=== PATIENT | female | born 1940 | race Caucasian/White ===

== ENCOUNTER 2019-03-02 06:31 | Inpatient (IN) ==
--- NOTE | 2019-03-02 06:52 | Emergency Department Note ---
ED Disposition Condition on Discharge: Good - Critical Care Critical Care Time: No <Rajiv Burch S - Last Filed: 03/02/19 07:52> Condition on Discharge: Serious Time of Disposition: 08:22 <Erick Bolden - Last Filed: 03/02/19 08:53> Clinical Impression: SOB (shortness of breath), Congestive heart failure, Fatigue, Coronary artery disease, Diabetes mellitus type 2 in obese, Hypercholesteremia, Hypoxia Disposition: Admitted as Observation Referrals: Beverly Escalante [Primary Care Provider] - Attestation: On 03/02/19, the high probability of a clinically significant, sudden or life threatening deterioration of the following system(s) required my full and direct attention, intervention and personal management. The time I documented below is in addition to time spent performing reported procedures but includes the cora wing listed in this critical care notation. Medical Decision Making - Medical Records Medical records reviewed: Yes: I reviewed the patient's medical records. - Alvarez Inquiry Pt receiving controlled substance: No - Lab Data Lab results reviewed: Yes: I reviewed the patient's lab results. Result diagrams: 03/02/19 07:15 - ECG Data Tracing #1 Normal Sinus Rhythm: Yes Ischemic changes: non-specific ST-T wave changes <Rajiv Burch S - Last Filed: 03/02/19 07:52> - Lab Data Result diagrams: 03/02/19 07:15 03/02/19 07:15 <Erick Bolden - Last Filed: 03/02/19 08:53> Vital Signs: 03/02/19 06:32 Temperature 98.1 F Temperature Source Oral Pulse Rate [Right] 64 Respiratory Rate 20 Blood Pressure [Left Arm] 201/87 H Blood Pressure Mean [Left Arm] 125 Blood Pressure Source [Left Arm] Automatic Cuff Blood Pressure Position [Left Arm] Sitting 02 Sat by Pulse Oximetry 93 L Oxygen Delivery Method Room Air - Lab Data Lab Results 03/02/19 06:43: Specimen Source Right radial, O2 % 2, ABG pH 7.39, ABG pCO2 39.1, ABG pO2 81.6, ABG HCO3 23.1, ABG Total CO2 24.3, ABG O2 Saturation 96, ABG Base Excess -1.8, Hang Test acceptable 03/02/19 07:15: WBC 12.6 H, RBC 4.45, Hgb 13.2, Hct 42.6, MCV 95.9, MCH 29.8, MCHC 31.0 L, RDW 15.3, Plt Count 300, MPV 8.7, Neut % (Auto) 73.7, Lymph % (Auto) 21.1, [place] % (Auto) 3.5, Eos % (Auto) 1.2, Baso % (Auto) 0.4, Neut # (Auto) 9.3 H, Lymph # (Auto) 2.7, [place] # (Auto) 0.5, Eos # (Auto) 0.2, Baso # (Auto) 0.1, ESR 26 03/02/19 07:15: Sodium 141, Potassium 4.1, Chloride 102, Carbon Dioxide 28, Anion Gap 15.1 H, BUN 18, Creatinine 0.97, Estimated Creat Clear 62, Estimated GFR 55 L, Est GFR ( Amer) 67, Glucose 205 H, Calcium 8.8, Total Bilirubin 0.7, AST 26, ALT 32, Alkaline Phosphatase 54, Troponin I < 0.02, C-Reactive Protein < 0.2, Total Protein 7.4, Albumin 3.5, Globulin 3.9 H, Albumin/Globulin Ratio 0.9 L 03/02/19 07:30: Lactate 1.5 Orders (Tests/Meds): ED MEDICATIONS Discontinued Medications Generic Name Dose Route Start Last Admin Trade Name Freq PRN Reason Stop Dose Admin Albuterol/Ipratropium 3 ml 03/02/19 06:43 Duoneb 3ml Neb IH 03/02/19 06:44 ONCE ONE Aspirin 324 mg 03/02/19 08:10 Aspirin 81mg Chewable Tablet PO 03/02/19 08:11 ONCE ONE Sodium Chloride 1,000 mls @ 999 mls/hr 03/02/19 06:45 03/02/19 06:52 Sod Chlor 0.9% 1000ml Bag IV 03/02/19 07:45 999 mls/hr .Q1H1M REMA Administration Methylprednisolone Sodium Succinate 125 mg 03/02/19 06:43 03/02/19 06:52 Solu-Medrol 125mg/2ml Vial IV 03/02/19 06:44 125 mg ONCE ONE Administration ORDERS Category Date Time Status BNP [B-Type Natriuretic Peptide] Stat Lab 03/02/19 07:15 Received Troponin I Q3H Lab 03/02/19 10:00 Ordered Troponin I Q3H Lab 03/02/19 13:00 Ordered Blood Culture Stat Micro 03/02/19 07:30 Received Resp/SOB HPI - General Mode of Arrival: EMS Source of Information: Patient, EMS, Medical Record Limitations: No Limitations Description of Symptoms (Recalled from ER Triage Doc. by RN): Pt states she became SOA today - History of Present Illness MD Complaint: shortness of breath Onset (ago): day(s) Severity: moderate Associated symptoms: denies other symptoms Treatment prior to arrival: none - Related Data Home oxygen amount: none <Rajiv Burch - Last Filed: 03/02/19 07:52> <Erick Bolden - Last Filed: 03/02/19 08:53> - General Chief Complaint: Shortness of Breath/Dyspnea Stated Complaint: SOA Time Seen by Provider: 03/02/19 06:40 - History of Present Illness pt with no chest pain but sob since yesterday with no prod cough - hx of mi in 08/22 with no stents - (Rajiv Burch) - Related Data Home Medications Medication Instructions Recorded Confirmed Levothyroxine Sodium [Synthroid 50 mcg PO DAILY 03/02/19 03/02/19 50mcg (0.05mg) tab] Lisinopril [Lisinopril 20mg Tab] 20 mg PO DAILY 03/02/19 03/02/19 Metformin HCl 500 mg PO BID 03/02/19 03/02/19 Metoprolol Tartrate [Lopressor 50 mg PO BID 03/02/19 03/02/19 50mg tablet] Allergies Allergy/AdvReac Type Severity Reaction Status Date / Time cephalexin [From Keflex] Allergy Verified 03/02/19 06:42 nitrofurantoin Allergy Verified 03/02/19 06:42 [From Macrodantin] Sulfa (Sulfonamide Allergy Verified 03/02/19 06:42 Antibiotics) [facility] History - Hepatitis A Screen Drug use history?: No High risk sexual behaviors?: No History of sexually transmitted infection?: No Currently employed?: No Childcare worker?: No Do you have indoor plumbing?: Yes Do you have electricity?: Yes I have reviewed the patient's past medical history: Yes Medical History: Reports:: Diabetes Mellitus Type 2 Denies:: Internal Pacemaker Laterality Cases: Left: Arthroscopy Shoulder, Total Knee Replacement Other Surgeries: No: Pacemaker Amputation: No - Social History Smoking Status: Former smoker Alcohol Intake: never Occupational Status: retired <Rajiv Burch - Last Filed: 03/02/19 07:52> - Hepatitis A Screen Attestation statement:: This patient has been screened for Hepatitis A risk factors. ROS Obtained: Yes All systems reviewed & no additional complaints - Constitutional Constitutional: Denies fever(s) - Eyes Eyes: Denies change in vision - ENT Ears, Nose, Mouth, and Throat: Denies sore throat - Cardiovascular Cardiovascular: Denies chest pain, Reports dyspnea - Respiratory Respiratory: Yes cough - Gastrointestinal Gastrointestingal: Denies: diarrhea - Genitourinary Female Genitourinary: Denies hematuria - Musculoskeletal Musculoskeletal: Denies joint pain, Denies joint swelling - Integumentary/Breasts Skin/Breast: Denies rash - Neurologic Neurologic: Denies seizure-like activity <Rajiv Burch - Last Filed: 03/02/19 07:52> Physical Exam - General General appearance: alert, obese - Head Head exam: normocephalic - Eye Eye exam: Present: PERRL, EOMI. Absent: scleral icterus - ENT ENT exam: Present: mucous membranes dry - Neck Neck exam: Present: trachea midline - Respiratory Respiratory exam: Absent: respiratory distress - Cardiovascular Cardiovascular exam: Present: regular rate - Abdominal Exam Abdominal exam: Present: soft - Extremities Exam Extremities exam: Present: pedal edema - Neurological Exam Neurological exam: Present: alert, CN II-XII intact - Psychiatric Psychiatric exam: Present: normal affect - Skin Skin exam: Absent: rash <Rajiv Burch - Last Filed: 03/02/19 07:52>
[2019-03-02 07:17] LABS: ABG Base Excess -1.8 mmol/L (-2.4-2.3); ABG HCO3 23.1 mmhg (22.0-26.0); ABG Oxygen Saturation 96 % (90-100); ABG PCO2 39.1 mmhg (35.0-45.0); ABG PH 7.39 mmol/L (7.35-7.45); ABG PO2 81.6 mmhg (80-100); ABG TCO2 24.3 mmhg (23-27)
[2019-03-02 07:24] LABS: Allen's Test acceptable; Oxygen 2 %
[2019-03-02 07:48] LABS: Basophils # 0.1 K/mm3 (0-0.2); Basophils % 0.4 % (0.1-2.0); Eosinophils # 0.2 K/mm3 (0.0-0.4); Eosinophils % 1.2 % (0.1-12.0); Hematocrit 42.6 % (37.0-47.0); Hemoglobin 13.2 g/dL (12.2-16.2); Lymphocytes # 2.7 K/mm3 (0.7-4.5); Lymphocytes % 21.1 % (10-50); Mean Corpuscular Volume 95.9 fl (81-99); Mean Platelet Volume 8.7 fl (7.4-10.4); Monocytes # 0.5 K/mm3 (0.1-1.0); Monocytes % 3.5 % (1.7-9.3); Neutrophils # 9.3 K/mm3 (1.8-7.8); Neutrophils % 73.7 % (37.0-80.0); Platelet Count 300 K/mm3 (142-424); Red Blood Count 4.45 M/mm3 (4.20-5.40); Red Cell Distribution Width 15.3 % (11.5-17.5); White Blood Count 12.6 K/mm3 (4.8-10.8)
[2019-03-02 07:55] LABS: Alanine Aminotransferase 32 U/L (12-78); Albumin Level 3.5 gm/dL (3.4-5.0); Albumin/Globulin Ratio 0.9 (1.1-1.8); Alkaline Phosphatase 54 U/L (46-116); Anion Gap 15.1 mEq/L (5-15); Aspartate Amino Transferase 26 U/L (15-37); Bilirubin,Total 0.7 mg/dL (0.2-1.0); Blood Urea Nitrogen 18 mg/dL (7-18); Calcium 8.8 mg/dL (8.5-10.1); Carbon Dioxide 28 mmol/L (21.0-32.0); Chloride 102 mmol/L (98-107); Globulin 3.9 gm/dl (1.3-3.2); Glucose 205 mg/dL (74-106); Sodium 141 mmol/L (136-145); Total Protein,Serum 7.4 gm/dL (6.4-8.2)
[2019-03-02 08:00] LABS: C-Reactive Protein < 0.2 mg/dL (0.0-0.9)
[2019-03-02 08:26] LABS: Erythrocyte Sedimentation Rate 26 mm/hr (0-30)
--- NOTE | 2019-03-02 13:12 | History & Physical Report ---
*Admission Date: 03/02/19 *Chief complaint: shortness of breath *History of present illness: Ms. Shukla is an 79-year-old female who is a patient of [facility] in [place]. She has a history of diabetes, hypothyroidism, hyperlipidemia, hypertension, and she had an NV in August [address] and is followed [address] Dr[address] Taveras. She states she has been fatigued for the past few weeks and then began having shortness of breath yesterday. She states she had a cough but it was not productive. The shortness of breath progressively worsened. She states she woke up at 2 AM and was having difficulty breathing. She did come by the ambulance to the emergency room this morning for evaluation. She was felt to have CHF in the emergency room and was given Lasix and admitted. She denies any chest pain or lower extremity edema. She states she has urinated a few times since she was given the Lasix and her shortness of breath does seem to be improving. [facility] History I have reviewed the patient's past medical history: Yes Medical History: Reports:: Diabetes Mellitus Type 2, Hyperlipidemia, Hypertension, Myocardial Infarction Denies:: Cancer, Internal Pacemaker *Have you ever received a pneumonia vaccine?: Yes *Have you received a flu vaccine this season?: Yes Other Medical History: Reports: Hypothyroidism Laterality Cases: Left: Arthroscopy Shoulder, Total Knee Replacement Other Surgeries: Yes: Hysterectomy-Total. No: Pacemaker Amputation: No - *Social History Educational Level: Attended High School Smoking Status: Former smoker Alcohol Intake: never *Occupational Status:: retired Housing: apartment *Travel in the last 8 weeks: None Family Hx:: Diabetes, Heart Attack, Hypertension Review of Systems - Constitutional Reports fatigue, Reports weakness, Denies chills, Denies fever(s) - Eyes Denies blurry vision, Denies double vision - ENT Reports dizziness, Denies nasal congestion, Denies sore throat - *Cardiovascular Reports shortness of breath, Denies chest pain, Denies leg swelling, Denies rapid, pounding, or irregular heartbeat - *Respiratory Reports cough, Reports shortness of breath, Denies wheezing - *Gastrointestinal Denies abdominal pain, Denies loose stools, Denies nausea, Denies vomiting - *Genitourinary Denies difficulty urinating, Denies painful urination - *Musculoskeletal Denies joint pain, Denies body aches - *Neurologic Reports dizziness, Reports weakness, Denies headache(s), Denies seizure-like activity Meds Home Medications Medication Instructions Recorded Confirmed Type Insulin Glargine,Hum.rec.anlog 40 unit SQ HS 03/02/19 03/02/19 History [Lantus Insulin 100units/mL 10mL vial] Levothyroxine Sodium [Synthroid 50 mcg PO DAILY 03/02/19 03/02/19 History 50mcg (0.05mg) tab] Lisinopril [Lisinopril 20mg Tab] 20 mg PO DAILY 03/02/19 03/02/19 History Metformin HCl 500 mg PO BID 03/02/19 03/02/19 History Metoprolol Tartrate [Lopressor 0.5 tab PO BID 03/02/19 03/02/19 History 50mg tablet] Allergies Allergy/AdvReac Type Severity Reaction Status Date / Time cephalexin [From Keflex] Allergy Verified 03/02/19 06:42 nitrofurantoin Allergy Verified 03/02/19 06:42 [From Macrodantin] Sulfa (Sulfonamide Allergy Verified 03/02/19 06:42 Antibiotics) Exam Vital signs and Labs for Last 24 Hours: Temp Pulse Resp BP Pulse Ox 97.9 F 95 H 18 110/46 L 96 03/02/19 11:08 03/02/19 11:08 03/02/19 11:08 03/02/19 11:08 03/02/19 11:08 Laboratory Results - last 24 hr 03/02/19 06:43: Specimen Source Right radial, O2 % 2, ABG pH 7.39, ABG pCO2 39.1, ABG pO2 81.6, ABG HCO3 23.1, ABG Total CO2 24.3, ABG O2 Saturation 96, ABG Base Excess -1.8, Hang Test acceptable 03/02/19 07:15: WBC 12.6 H, RBC 4.45, Hgb 13.2, Hct 42.6, MCV 95.9, MCH 29.8, MCHC 31.0 L, RDW 15.3, Plt Count 300, MPV 8.7, Neut % (Auto) 73.7, Lymph % (Auto) 21.1, [place] % (Auto) 3.5, Eos % (Auto) 1.2, Baso % (Auto) 0.4, Neut # (Auto) 9.3 H, Lymph # (Auto) 2.7, [place] # (Auto) 0.5, Eos # (Auto) 0.2, Baso # (Auto) 0.1, ESR 26 03/02/19 07:15: Sodium 141, Potassium 4.1, Chloride 102, Carbon Dioxide 28, Anion Gap 15.1 H, BUN 18, Creatinine 0.97, Estimated Creat Clear 62, Estimated GFR 55 L, Est GFR ( Amer) 67, Glucose 205 H, Calcium 8.8, Total Bilirubin 0.7, AST 26, ALT 32, Alkaline Phosphatase 54, Troponin I < 0.02, C-Reactive Protein < 0.2, Total Protein 7.4, Albumin 3.5, Globulin 3.9 H, Albumin/Globulin Ratio 0.9 L 03/02/19 07:15: B-Natriuretic Peptide 297 H 03/02/19 07:30: Lactate 1.5 03/02/19 10:00: Troponin I < 0.02 03/02/19 12:42: POC Glucose 320 H* I & O for Last 24 hours: Intake & Output 02/28/19 03/01/19 03/02/19 03/03/19 11:59 11:59 11:59 11:59 Intake Total 1000 / 1000 Balance 1000 / 1000 Weight 190 lb 8 oz 190 lb 7.988 oz - *Routine HEENT Exam Head: Present: normocephalic Eye: Present: EOMI, PERRL ENT: Present: mucous membranes moist - *Routine Neck Exam Present: supple. Absent: lymphadenopathy - *Routine Respiratory Exam Present: crackles (faint bibasilar). Absent: wheezes - *Routine Cardiovascular Exam Present: RRR - *Routine Abdominal Exam Present: soft, normoactive bowel sounds. Absent: tenderness - *Routine Extremities Exam Absent: cyanosis, clubbing, edema - *Routine Skin Exam Present: warm. Absent: rash - *Routine Neurological Exam Present: alert, oriented X3 H&P: Result - Impressions CXR - CHF with possible infiltrate or atelectasis in the right lower lobe Assessment and Plan (1) Congestive heart failure Current visit: Yes Status: Acute Category: Medical Code(s): I50.9 - Heart failure, unspecified (2) Hypoxia Current visit: Yes Status: Acute Category: Medical Code(s): R09.02 - Hypoxemia (3) SOB (shortness of breath) Current visit: Yes Status: Acute Category: Medical Code(s): R06.02 - Shortness of breath (4) Fatigue Current visit: Yes Status: Acute Category: Medical Code(s): R53.83 - Other fatigue (5) Coronary artery disease Current visit: Yes Status: Chronic Category: Medical Code(s): I25.10 - Atherosclerotic heart disease of [place] coronary artery without angina pectoris (6) Diabetes mellitus type 2 in obese Current visit: Yes Status: Chronic Category: Medical Code(s): E11.69 - Type 2 diabetes mellitus with other specified complication; E66.9 - Obesity, unspecified (7) Hypercholesteremia Current visit: Yes Status: Chronic Category: Medical Code(s): E78.00 - Pure hypercholesterolemia, unspecified - Assessment and plan all Dx Assessment and Plan for all problems:: Pt was admitted and started on IV lasix. She is already feeling better. She was also given a dose of levaquin in the ER d/t elevated WBC. CXR questioned a possible pneumonia. May need continued antibiotics. Will discuss with Dr. Wooten. Will get a repeat CXR tomorrow and will also order an Echo.
--- NOTE | 2019-03-02 13:54 | Pharmacy Consult Notes ---
[facility] Pharmacy VTE Monitoring - Patient Demographics Admission date: 03/02/19 Report Date: 03/02/19 Time: 13:52 Allergies/Adverse Reactions: Patient Allergies cephalexin [From Keflex] Allergy (Verified 03/02/19 06:42) nitrofurantoin [From Macrodantin] Allergy (Verified 03/02/19 06:42) Sulfa (Sulfonamide Antibiotics) Allergy (Verified 03/02/19 06:42) Height: 1.52 m Weight: 86.409 kg Patient Problems: Current Active Problems SOB (shortness of breath) (Acute) Congestive heart failure (Acute) Fatigue (Acute) Coronary artery disease (Chronic) Diabetes mellitus type 2 in obese (Chronic) Hypercholesteremia (Chronic) Hypoxia (Acute) - VTE Risk Labs: VTE Related Lab Results Hgb 13.2 g/dL (12.2-16.2) 03/02/19 07:15 Hct 42.6 % (37.0-47.0) 03/02/19 07:15 Plt Count 300 K/mm3 (142-424) 03/02/19 07:15 BUN 18 mg/dL (7-18) 03/02/19 07:15 Creatinine 0.97 mg/dL (0.55-1.02) 03/02/19 07:15 Estimated Creat Clear 62 mL/min (50-200) 03/02/19 07:15 Was VTE Risk Assessment Performed: Yes VTE Score: 8 VTE Risk Level: Moderate Risk - Prophylaxis VTE Prophylaxis Ordered?: Yes Types of VTE Prophylaxis: TEDS Knee High Location of Applied Device: Bilateral Lower Extremeties
--- NOTE | 2019-03-02 15:00 | Electrocardiograph Report ---
APPROVED REPORT Exam: Resting ECG HR:56 bpm ECG Measurements Heart Rate 56 AXES QRSd 84 QRS 19 QT 508 T154 QTc 490 <Conclusion> NSR-Motion Artifact Prolonged QT Consider Inferolateral Ischemia Abnormal ECG Electronically signed by : Behzad Portillo, 03/02/2019 14:59:42
--- NOTE | 2019-03-02 18:29 | Progress Note ---
Internal Medicine - PN: Subj *Date: 03/02/19 *Time: 18:27 Interval history: The patient is quite comfortable this evening. Her lungs are remarkably clear. Her troponins have been negative. Echocardiogram was obtained and report is pending. Exam Vital signs and Labs for Last 24 Hours: Temp Pulse Resp BP Pulse Ox 97.5 F L 58 L 20 159/69 H 96 03/02/19 16:00 03/02/19 16:00 03/02/19 16:00 03/02/19 16:00 03/02/19 16:00 Laboratory Results - last 24 hr 03/02/19 06:43: Specimen Source Right radial, O2 % 2, ABG pH 7.39, ABG pCO2 39.1, ABG pO2 81.6, ABG HCO3 23.1, ABG Total CO2 24.3, ABG O2 Saturation 96, ABG Base Excess -1.8, Hang Test acceptable 03/02/19 07:15: WBC 12.6 H, RBC 4.45, Hgb 13.2, Hct 42.6, MCV 95.9, MCH 29.8, MCHC 31.0 L, RDW 15.3, Plt Count 300, MPV 8.7, Neut % (Auto) 73.7, Lymph % (Auto) 21.1, [place] % (Auto) 3.5, Eos % (Auto) 1.2, Baso % (Auto) 0.4, Neut # (Auto) 9.3 H, Lymph # (Auto) 2.7, [place] # (Auto) 0.5, Eos # (Auto) 0.2, Baso # (Auto) 0.1, ESR 26 03/02/19 07:15: Sodium 141, Potassium 4.1, Chloride 102, Carbon Dioxide 28, Anion Gap 15.1 H, BUN 18, Creatinine 0.97, Estimated Creat Clear 62, Estimated GFR 55 L, Est GFR ( Amer) 67, Glucose 205 H, Calcium 8.8, Total Bilirubin 0.7, AST 26, ALT 32, Alkaline Phosphatase 54, Troponin I < 0.02, C-Reactive Protein < 0.2, Total Protein 7.4, Albumin 3.5, Globulin 3.9 H, Albumin/Globulin Ratio 0.9 L 03/02/19 07:15: B-Natriuretic Peptide 297 H 03/02/19 07:30: Lactate 1.5 03/02/19 10:00: Troponin I < 0.02 03/02/19 12:42: POC Glucose 320 H* 03/02/19 13:00: Troponin I < 0.02 03/02/19 16:31: POC Glucose 226 H I & O for Last 24 hours: Intake & Output 02/28/19 03/01/19 03/02/19 03/03/19 11:59 11:59 11:59 11:59 Intake Total 1000 / 1000 240 / 240 Balance 1000 / 1000 240 / 240 Weight 190 lb 8 oz 190 lb 7.988 oz - Constitutional no acute distress - *Routine Respiratory Exam Present: CTA bilaterally - *Routine Cardiovascular Exam Present: RRR - *Routine Extremities Exam Present: edema (1+) Assessment and Plan (1) Congestive heart failure Current visit: Yes Status: Acute Category: Medical Code(s): I50.9 - Heart failure, unspecified (2) Hypoxia Current visit: Yes Status: Acute Category: Medical Code(s): R09.02 - Hypoxemia (3) SOB (shortness of breath) Current visit: Yes Status: Acute Category: Medical Code(s): R06.02 - Shortness of breath (4) Fatigue Current visit: Yes Status: Acute Category: Medical Code(s): R53.83 - Other fatigue (5) Coronary artery disease Current visit: Yes Status: Chronic Category: Medical Code(s): I25.10 - Atherosclerotic heart disease of [place] coronary artery without angina pectoris (6) Diabetes mellitus type 2 in obese Current visit: Yes Status: Chronic Category: Medical Code(s): E11.69 - Type 2 diabetes mellitus with other specified complication; E66.9 - Obesity, unspecified (7) Hypercholesteremia Current visit: Yes Status: Chronic Category: Medical Code(s): E78.00 - Pure hypercholesterolemia, unspecified - Assessment and plan all Dx Assessment and Plan for all problems:: Continue present treatment.
[2019-03-03 06:36] LABS: Albumin Level 3.1 gm/dL (3.4-5.0); Albumin/Globulin Ratio 0.8 (1.1-1.8); Anion Gap 15.3 mEq/L (5-15); Bilirubin,Total 0.5 mg/dL (0.2-1.0); Calcium 8.6 mg/dL (8.5-10.1); Globulin 3.8 gm/dl (1.3-3.2); Phosphorous 4.7 mg/dL (2.4-4.9); Total Protein,Serum 6.9 gm/dL (6.4-8.2)
[2019-03-03 06:57] LABS: Basophils % 0.1 % (0.1-2.0); Eosinophils % 0.1 % (0.1-12.0); Hemoglobin 12.7 g/dL (12.2-16.2); Lymphocytes % 11.1 % (10-50); Mean Corpuscular HGB Conc 30.3 g/dL (31.8-35.4); Mean Platelet Volume 8.8 fl (7.4-10.4); Monocytes % 6.1 % (1.7-9.3); Neutrophils % 82.6 % (37.0-80.0); Platelet Count 307 K/mm3 (142-424); Red Blood Count 4.38 M/mm3 (4.20-5.40); Red Cell Distribution Width 15.4 % (11.5-17.5); White Blood Count 17.3 K/mm3 (4.8-10.8)
[2019-03-03 06:58] LABS: Lymphocytes # 1.9 K/mm3 (0.7-4.5); Monocytes # 1.1 K/mm3 (0.1-1.0); Neutrophils # 14.3 K/mm3 (1.8-7.8)
[2019-03-03 07:32] LABS: Lymphocytes % 14 % (10-50); Monocytes % 9 % (2-9); Neutrophils % 75 % (42-76); Total Cells Counted 100
[2019-03-03 07:33] LABS: RBC Morphology Normal
--- NOTE | 2019-03-03 10:44 | Cardiology Report ---
APPROVED REPORT EXAM: Comprehensive 2D, Doppler, and color-flow Echocardiogram Cardiology Consultants: Carey James RT(R) Ht: 4 ft 11 in Wt: 190lbs BSA: 1.80 BP: 110/46 mmHg Indications: ex smoker, fatigue, HTN, diabetes, SOB, Hyperlipidemia 2D Dimensions Aortic Root 2.30 cm F: 2.7 - 3.3 Left Atrium 4.10 cm F: 2.7 - 3.8 LVOT 1.64 cm (M/F) 1.5-2.5 M-Mode Dimensions RVDd 1.74 cm (0.9-2.6)LVDd 4.92 cm (3.5-5.7) LVDs 3.55 cm (3.5-5.7)IVSd 1.09 cm (0.6-1.1) PWd 1.09 cm (0.6-1.1)EF (Teich) 53.80% FS 27.80% EDV (Teich) 113.90 mL ESV (Teich) 52.60 mL LV Diastology E/A Ratio 2.08 Mitral Valve MV A Velocity 45.00 (40-130 cm/s) Left Ventricle Left atrium is moderately enlarged, left ventricle is normal size, mild concentric left ventricular hypertrophy, visually estimated ejection fraction 55% with no regional wall motion abnormality, grade 1 diastolic dysfunction seen with tissue Doppler evidence of raise left atrial pressure. Right Ventricle Right atrium and right ventricular mildly enlarged with normal contractility. Aortic Valve Aortic valve is thickened and calcified leaflet continue to display good mobility, there is no aortic stenosis, there is mild aortic insufficiency. Mitral Valve Mitral valve is grossly normal, there is no mitral stenosis, there is mild mitral regurgitation. Tricuspid Valve Tricuspid valve is grossly normal, there is mild tricuspid regurgitation, tricuspid regurgitation jet velocity is inadequate for calculation of the right ventricular systolic pressure. Pulmonic Valve Pulmonic valve is poorly visualized. Great Vessels Aortic root is normal size. Pericardium No significant pericardial effusion noted. Conclusion 1. Moderately enlarged left atrium, normal left ventricular size, mild concentric left ventricular hypertrophy, visually estimated ejection fraction 55% with no regional wall motion abnormality, grade 1 diastolic dysfunction seen with tissue Doppler evidence of raise left atrial pressure. 2. Mildly enlarged right ventricle with normal contractility. 3. Thickened and calcified aortic valve without aortic stenosis, there is mild aortic insufficiency. 4. Mild mitral and tricuspid regurgitation. 5. No significant pericardial effusion noted. Electronically signed by : Anand Grant, 03/03/2019 10:44:16
--- NOTE | 2019-03-03 11:20 | Progress Note ---
Internal Medicine - PN: Subj *Date: 03/03/19 *Time: 11:17 Interval history: Clinically she is stable. She slept well. She is not short of breath. She was not seen by cardiology. She did not receive her Lantus dose. I will give her a partial dose this morning. I discussed her meds with her today. Furosemide 40 mg will be added to her regimen. She is to continue her other medications as prior to hospitalization. She was encouraged to contact her primary care provider as soon as possible. She needs follow-up within the week. Exam Vital signs and Labs for Last 24 Hours: Temp Pulse Resp BP Pulse Ox 97.8 F 57 L 17 148/85 H 94 L 03/03/19 07:30 03/03/19 07:30 03/03/19 07:30 03/03/19 07:30 03/03/19 07:30 Laboratory Results - last 24 hr 03/02/19 07:15: Hemoglobin A1c 8.3 H 03/02/19 12:42: POC Glucose 320 H* 03/02/19 13:00: Troponin I < 0.02 03/02/19 16:31: POC Glucose 226 H 03/02/19 20:03: POC Glucose 303 H* 03/03/19 05:46: WBC 17.3 H D, RBC 4.38, Hgb 12.7, Hct 42.0, MCV 96.0, MCH 29.1, MCHC 30.3 L, RDW 15.4, Plt Count 307, MPV 8.8, Neut % (Auto) 82.6 H, Lymph % (Auto) 11.1, [place] % (Auto) 6.1, Eos % (Auto) 0.1, Baso % (Auto) 0.1, Neut # (Auto) 14.3 H, Lymph # (Auto) 1.9, [place] # (Auto) 1.1 H, Eos # (Auto) 0.0, Baso # (Auto) 0.0, Total Counted 100, Neutrophils % (Manual) 75, Band Neutrophils % 2.0, Lymphocytes % (Manual) 14, Monocytes % (Manual) 9, Platelet Estimate Normal, RBC Morphology Normal 03/03/19 05:46: Sodium 139, Potassium 4.3, Chloride 101, Carbon Dioxide 27, Anion Gap 15.3 H, BUN 32 H D, Creatinine 1.33 H D, Estimated Creat Clear 47, Estimated GFR 38 L, Est GFR ( Amer) 46 L D, Glucose 268 H D, Calcium 8.6, Phosphorus 4.7, Magnesium 1.7, Total Bilirubin 0.5, AST 18 D, ALT 26, Alkaline Phosphatase 48, Total Protein 6.9, Albumin 3.1 L D, Globulin 3.8 H, Albumin/Globulin Ratio 0.8 L, Triglycerides 68, Cholesterol 165, LDL Cholesterol 68, VLDL Cholesterol 14, HDL Cholesterol 83, Cholesterol/HDL Ratio 2.0 I & O for Last 24 hours: Intake & Output 02/28/19 03/01/19 03/02/19 03/03/19 11:59 11:59 11:59 11:59 Intake Total 1000 / 1000 1080 / 1080 Output Total 600 / 600 Balance 1000 / 1000 480 / 480 Weight 190 lb 8 oz 194 lb 8 oz - Constitutional no acute distress - *Routine HEENT Exam Head: Present: normocephalic Eye: Present: EOMI, PERRL, normal accommodation ENT: Present: mucous membranes moist - Routine Chest/Breast/Axilla Exam Chest wall: Absent: tenderness - *Routine Respiratory Exam Present: CTA bilaterally - *Routine Cardiovascular Exam Present: RRR - *Routine Abdominal Exam Present: soft. Absent: tenderness - *Routine Extremities Exam Absent: edema - *Routine Neurological Exam Present: alert, oriented X3 Assessment and Plan (1) Congestive heart failure Current visit: Yes Status: Acute Category: Medical Code(s): I50.9 - Heart failure, unspecified (2) Hypoxia Current visit: Yes Status: Acute Category: Medical Code(s): R09.02 - Hypoxemia (3) SOB (shortness of breath) Current visit: Yes Status: Acute Category: Medical Code(s): R06.02 - Shortness of breath (4) Fatigue Current visit: Yes Status: Acute Category: Medical Code(s): R53.83 - Other fatigue (5) Coronary artery disease Current visit: Yes Status: Chronic Category: Medical Code(s): I25.10 - Atherosclerotic heart disease of [place] coronary artery without angina pectoris (6) Diabetes mellitus type 2 in obese Current visit: Yes Status: Chronic Category: Medical Code(s): E11.69 - Type 2 diabetes mellitus with other specified complication; E66.9 - Obesity, unspecified (7) Hypercholesteremia Current visit: Yes Status: Chronic Category: Medical Code(s): E78.00 - Pure hypercholesterolemia, unspecified - Assessment and plan all Dx Assessment and Plan for all problems:: Discharged on home medications. Lasix 40 mg a day added. Follow-up with primary care provider within the week is recommended.
[2019-03-03 12:34] LABS: Microscopic, Urine URINE MICROSCOPIC (MICROSCOPIC)
[2019-03-03 12:56] LABS: Appearance,Urine CLEAR (Clear); Bilirubin,Urine Negative (Negative); Blood, Urine Negative (Negative); Color,Urine YELLOW (Yellow); Glucose,Urine (UA) Negative (Negative); Ketones,Urine Negative (Negative); Leukocyte Esterase,Urine Negative (Negative); PH,Urine 5.5 (5.0-8.5); Protein,Urine Negative (Negative); Urobilinogen,Urine 0.2 EU/dl (0.2)
[2019-03-03 12:59] LABS: RBC,Urine Occasional #/hpf (0-3); Squamous Epithelial Cell,Urine Occasional #/hpf (0-5); WBC,Urine Occasional #/hpf (0-3)
--- NOTE | 2019-03-05 21:36 | Discharge Summary ---
General - General Admission date:: 03/02/19 Discharge date: 03/03/19 HPI HPI: Ms. Shukla is an 79-year-old female who is a patient of [facility] in [place]. She has a history of diabetes, hypothyroidism, hyperlipidemia, hypertension, and she had an [place] in August 2018 and is followed by Dr[address] Taveras. She states she has been fatigued for the past few weeks and then began having shortness of breath yesterday. She states she had a cough but it was not productive. The shortness of breath progressively worsened. She states she woke up at 2 AM and was having difficulty breathing. She did come by the ambulance to the emergency room this morning for evaluation. She was felt to have CHF in the emergency room and was given Lasix and admitted. She denies any chest pain or lower extremity edema. She states she has urinated a few times since she was given the Lasix and her shortness of breath does seem to be improving. Hospital Course Hospital Course: The patient's initial chest x-ray showed CHF with a possible infiltrate in the right lower lobe. She was admitted and started on Lasix. She was already feeling better after a dose of Lasix at the time of history and physical. She was given a dose of Levaquin in the emergency room due to a possible pneumonia on chest x-ray. She had an echo done showing an EF of 55%. There was grade 1 diastolic dysfunction. Patient's troponins all returned negative. Her shortness of breath greatly improved with Lasix and diuresis. She had a repeat chest x-ray showing improvement in the congestive heart failure with a trace right sided effusion and no pneumonia. Clinically, she was stable to be discharged home. Lasix 40 mg was added to her daily medication regimen. She was encouraged to contact her primary care provider for follow-up as soon as pos sible. The patient's white blood cell count was elevated, but it was felt to be due to the steroids she received in the emergency room. Dr. Wooten felt she would need a follow-up CBC at her PCPs office. Objective Vital signs: Temp Pulse Resp BP Pulse Ox 97.8 F 57 L 17 148/85 H 94 L 03/03/19 07:30 03/03/19 07:30 03/03/19 07:30 03/03/19 07:30 03/03/19 07:30 Narrative: - *Routine HEENT Exam Head: Present: normocephalic Eye: Present: EOMI, PERRL ENT: Present: mucous membranes moist - *Routine Neck Exam Present: supple. Absent: lymphadenopathy - *Routine Respiratory Exam Present: crackles (faint bibasilar). Absent: wheezes - *Routine Cardiovascular Exam Present: RRR - *Routine Abdominal Exam Present: soft, normoactive bowel sounds. Absent: tenderness - *Routine Extremities Exam Absent: cyanosis, clubbing, edema - *Routine Skin Exam Present: warm. Absent: rash - *Routine Neurological Exam Present: alert, oriented X3 Results Labs on day of discharge: Preliminary micro results at discharge 03/03/19 09:17 Sputum Culture - Preliminary Sputum - Expectorated Sputum 03/02/19 07:30 Blood Culture - Preliminary Blood NO GROWTH AFTER 48 HOURS 03/02/19 07:15 Blood Culture - Preliminary Blood NO GROWTH AFTER 48 HOURS DS: Diagnosis - Discharge Diagnosis (1) Congestive heart failure Status: Acute (2) Hypoxia Status: Acute (3) SOB (shortness of breath) Status: Acute (4) Fatigue Status: Acute (5) Coronary artery disease Status: Chronic (6) Diabetes mellitus type 2 in obese Status: Chronic (7) Hypercholesteremia Status: Chronic Discharge Plan - Patient Discharge Instructions ACTIVITY: Limited activity DIET: advance to your usual diet Patient Instructions: DI for Heart Failure, Low-Sodium Diet, Heart Failure: When to Call for Help - Follow up Plan Follow up with: Beverly Escalante [Primary Care Provider] - (arrange follow up within a week) Disposition: Home, Self-Snf Medications: Home Medications Medication Instructions Recorded Confirmed Type Insulin Glargine,Hum.rec.anlog 40 unit SQ HS 03/02/19 03/02/19 History [Lantus Insulin 100units/mL 10mL vial] Levothyroxine Sodium [Synthroid 50 mcg PO DAILY 03/02/19 03/02/19 History 50mcg (0.05mg) tab] Lisinopril [Lisinopril 20mg Tab] 20 mg PO DAILY 03/02/19 03/02/19 History Metformin HCl 500 mg PO BID 03/02/19 03/02/19 History Metoprolol Tartrate [Lopressor 25 mg PO BID 03/02/19 03/02/19 History 50mg tablet] Simvastatin 10 mg PO HS 03/02/19 03/02/19 History Furosemide [Furosemide 40MG tAB] 40 mg PO DAILY #30 tab 03/03/19 Rx Prescriptions/Medication Reconciliation: New Furosemide [Furosemide 40MG tAB] 40 mg PO DAILY #30 tab Continued Metoprolol Tartrate [Lopressor 50mg tablet] 25 mg PO BID Lisinopril [Lisinopril 20mg Tab] 20 mg PO DAILY Levothyroxine Sodium [Synthroid 50mcg (0.05mg) tab] 50 mcg PO DAILY Metformin HCl 500 mg PO BID Insulin Glargine,Hum.rec.anlog [Lantus Insulin 100units/mL 10mL vial] 40 unit SQ HS Simvastatin 10 mg PO HS - Problem Reconciliation Problems Reviewed?: Yes
== END 2019-03-03 12:51 | disposition home or self-care (01) | DRG 293 ==
LOC: ER 06:31 → 2ND 09:29
PROVIDERS: ADMIT Family Medicine; ATTEND Family Medicine

== ENCOUNTER 2020-07-23 15:00 | Outpatient (RCR) | payer MEDICARE, BC, SELFPAY | END 2020-07-24 16:00 | disposition home or self-care (01) | LOC: PT.CARL 15:00 | PROVIDERS: PCP Nurse Practitioner Family; Visit Provider Nurse Practitioner | DX: M54.5 Low back pain (principal) | CPT/HCPCS: 97010; 97014; 97110; 97140; 97163; G0283 ==

== ENCOUNTER 2022-03-08 17:54 | Inpatient (IN) | payer MEDICARE, BC, SELFPAY ==
[2022-03-08] VITALS (15 sets, daily range): BP systolic 132–198; BP diastolic 49–89; PULSE 55–81; RESP 17–20; TEMP 36.2–36.6; O2SAT 90–98; BMI 37.0; BMI 37.1
--- NOTE | 2022-03-08 17:53 | ECG_ITS ---
APPROVED REPORT Exam: Resting ECG HR:85 bpm ECG Measurements Heart Rate 85 AXES ND 170 P 70 QRSd 114 QRS 33 QT 397 T 102 QTc 439 Conclusion SINUS RHYTHM WITH OCCASIONAL SUPRAVENTRICULAR PREMATURE COMPLEXES MODERATE INTRAVENTRICULAR CONDUCTION DELAY [110+ ms QRS DURATION] ST ELEVATION, CONSIDER ANTERIOR INJURY [MARKED ST ELEVATION W/O NORMALLY INFLECTED T-WAVE IN V2-V5] ACUTE SD UNCONFIRMED REPORT Electronically signed by : Narciso Heart MD 03/09/2022 09:33:16
--- NOTE | 2022-03-08 17:57 | PC.NURSE ---
Stemi called at [address] [facility] notified through stemi phone, calling in the team for director of cardiac cath lab. wastewater analyst lab analyst consent signed, pt placed on zoll pads, placed in gown, and shaved according to director of cardiac cath lab recommendations for heart cath. Family at bs.
--- NOTE | 2022-03-08 18:00 | PC.NURSE ---
CHOCO GOYAL at
--- NOTE | 2022-03-08 18:02 | XR_ITS ---
PROCEDURE INFORMATION: Exam: XR Chest Exam date and time: 03/08/2022 6:14 PM Age: 82 years old Clinical indication: Pain; Chest pressure; Additional info: Stemi TECHNIQUE: Imaging protocol: Radiologic exam of the chest. Views: 1 view. COMPARISON: CR XR CHEST 2V 03/03/2019 7:08 AM FINDINGS: Lungs: No regions of consolidation or pleural effusion. Pleural spaces: See Lungs finding. Heart/Mediastinum: Wires superimposed upon the mediastinum. Curvilinear density superimposed upon the cardiac silhouette which is new compared with the 2019 examination. Bones/joints: Unremarkable. IMPRESSION: Curvilinear density superimposed upon the cardiac silhouette. Clinically correlate. Consider further evaluation with an echocardiogram or computerized tomography if appropriate.
--- NOTE | 2022-03-08 18:05 | HMH.EDGENADL ---
Discharge Plan Disposition Patient Disposition: Still a Patient Condition: Critical Clinical Impressions Clinical Impression: STEMI (ST elevation myocardial infarction) Discharge ED Provider: Abdelrahman Olivares General Adult HPI General Chief complaint: Chest Pain Stated complaint: chest pain Time Seen by Provider: 03/08/22 17:55 Mode of Arrival: Ambulatory Source of Information: Patient Limitations: No Limitations History of Present Illness HPI narrative: This is an 82-year-old with CHF, CAD, NH currently on daily aspirin, type 2 diabetes, hypercholesterolemia presenting with back pain. Patient states back pain started 24 hours prior to arrival when she was walking in her living room. Since that time, it has waxed and waned. Currently, back pain is 8 out of 10, radiates to her left upper extremity and teeth. She states it feels like my teeth and arm are aching. Has not noticed anything that makes it better, including rest. Exertion makes it worse. Associated with shortness of breath and diaphoresis, but not nausea, vomiting, neurologic deficits, headache, weakness, or any other concerning history. Related Data Home Medications Medication Instructions Recorded Confirmed insulin glargine 100 unit/mL 40 unit SQ HS Diabetes 03/02/19 03/08/22 subcutaneous solution levothyroxine 50 mcg tablet 50 mcg PO DAILY thyroid 03/02/19 03/08/22 lisinopril 20 mg tablet 20 mg PO DAILY htn 03/02/19 03/08/22 metoprolol tartrate 50 mg tablet 25 mg PO BID htn 03/02/19 03/08/22 simvastatin 10 mg tablet 10 mg PO HS Cholesterol 03/02/19 03/08/22 furosemide 40 mg tablet 40 mg PO DAILY PRN fluid retention 03/08/22 03/08/22 Allergies Allergy/AdvReac Type Severity Reaction Status Date / Time cephalexin [From Keflex] Allergy Verified 03/02/19 06:42 nitrofurantoin Allergy Verified 03/02/19 06:42 [From Macrodantin] Sulfa (Sulfonamide Allergy Verified 03/02/19 06:42 Antibiotics) [facility] Disclaimer: The information contained in this section may have been updated after the patient was seen, as this information can be updated by other users. Medical History Arthritis Cholecystectomy planned Diabetes mellitus, type 2 History of gastroesophageal reflux (GERD) History of heart attack Hyperlipidemia Hypertension Menopause Pneumonia Urinary tract infection Surgical History H/O arthroscopy of shoulder H/O colonoscopy H/O: hysterectomy History of esophagogastroduodenoscopy (EGD) History of knee replacement, total Family History Mother Family history of myocardial infarction Other Family history of diabetes mellitus type II Social History Smoking Status: Former smoker alcohol intake: never current occupational status: retired Travel in the last 8 weeks: None housing: apartment ROS Obtained: Yes All systems reviewed & no additional complaints except as documented Physical Exam General General appearance: alert and in no apparent distress Head Head exam: atraumatic, normocephalic and normal inspection Eye Eye exam: Present normal appearance, PERRL and EOMI ENT ENT exam: Present normal exam, normal oropharynx, mucous membranes moist, TM's normal bilaterally and normal external ear exam Neck Neck exam: Present normal inspection, full ROM and trachea midline; Absent meningismus or lymphadenopathy Chest Chest inspection: Present normal inspection and symmetric chest wall rise; Absent tenderness Respiratory Respiratory exam: Present normal lung sounds bilaterally; Absent respiratory distress Cardiovascular Cardiovascular exam: Present regular rate and normal rhythm; Absent JVD Abdominal Exam Abdominal exam: Present soft and normal bowel sounds; Absent distention, tenderness or guarding Extrem
[2022-03-08 18:10] LABS: Basophils # 0.1 K/mm3 (0-0.2); Basophils % 1.3 % (0.1-2.0); Eosinophils # 0.6 K/mm3 (0.0-0.4); Eosinophils % 6.4 % (0.1-12.0); Hematocrit 49.8 % (37.0-47.0); Hemoglobin 15.9 g/dL (12.2-16.2); Lymphocytes % 34.8 % (10-50); Mean Corpuscular HGB Conc 31.9 g/dL (31.8-35.4); Mean Corpuscular Hemoglobin 30.5 pg (27.0-31.2); Mean Corpuscular Volume 95.8 fl (81-99); Mean Platelet Volume 8.6 fl (7.4-10.4); Monocytes # 0.7 K/mm3 (0.1-1.0); Monocytes % 8.5 % (1.7-9.3); Neutrophils # 4.3 K/mm3 (1.8-7.8); Neutrophils % 48.9 % (37.0-80.0); Platelet Count 280 K/mm3 (142-424); White Blood Count 8.7 K/mm3 (4.8-10.8)
[2022-03-08 18:12] LABS: Chloride 103 mmol/L (98-107); Potassium 4.3 mmoL/L (3.5-5.1); Sodium 136 mmol/L (136-145)
[2022-03-08 18:15] LABS: Blood Urea Nitrogen 28 mg/dl (7-17); Creatinine Clearance Estimated 41 mL/min (50-200); Estimated Glomerular Filt Rate 36 ml/min (>60); GFR (African American) 43 ML/MIN (>60)
[2022-03-08 18:16] LABS: Anion Gap 9.3 mEq/L (5-15); Calcium 8.9 mg/dl (8.4-10.2); Carbon Dioxide 28 mmol/L (22.0-30.0); Glucose 195 mg/dl (74-100)
--- NOTE | 2022-03-08 18:25 | IR_ITS ---
APPROVED REPORT Patient Location: Emergent Share Holder: MADALYN Juarez RT (R) PROCEDURES Left heart catheterization Left ventriculogram Selective coronary angiogram Drug-eluting stent deployment to the proximal mid and distal LAD in a contiguous manner Attempted angioplasty to a chronically occluded circumflex artery INDICATION Acute anterior ST elevation myocardial infarction, Coronary artery disease Informed consent was obtained prior to the procedure. COMPLICATIONS None Estimated Blood Loss: Less than 10 ML TECHNIQUE One percent lidocaine used to anesthetize the right anterior aspect of the wrist. The right radial artery was accessed via the Seldinger technique. A 6 [place] sheath was placed in the right radial artery. 2.5 mg of verapamil, 800 mcg of nitroglycerin, 1mg Lidocaine and 5000 U Heparin were given through the arterial sheath. The papa catheter was also used to perform left heart catheterization, left ventriculogram and selective coronary angiogram. Guide catheter was placed in the left main artery followed by a Choice PT extra-support wire being placed into the distal LAD. Predilatation using a 2 mm x 20 mm balloon was required for the mid LAD. Following this a 2.5 x 38 mm resolute Hector stent was deployed in the mid LAD at 20 christiano reducing the stenosis. An additional 2.25 x 15 mm resolute Hector stent was required distal to the first stent yet still overlapping it due to severe stenosis. Each time there was difficulty in passing the stent through the proximal LAD. There was calcification with an intraluminal obstruction appreciated by both the balloon and the stents. With some pressure and difficulty a 3 mm x 26 mm resolute Hector stent was deployed in the proximal LAD which overlapped the proximal portion of the 2.5 mm stent. This was deployed at 2124 christiano. A 2.75 x 12 mm noncompliant balloon was then placed into the mid LAD and deployed at 24 and then 28 christiano. After repeat angiography an additional 3 mm x 12 mm noncompliant balloon was deployed at 28 christiano in the mid LAD and proximal LAD to post dilate. Excellent angiographic results were obtained at the end of the procedure with NARAYAN 0 flow being present initially and NARAYAN-3 flow at the end of the procedure. Intracoronary nitroglycerin was administered. An additional Choice PT extra-support wire was placed into the circumflex artery which was bluntly occluded. It was uncertain if this was a chronic occlusion. A 2 mm x 12 mm compliant balloon was then placed into the proximal circumflex artery for both support and additional guidance and trying to traverse this occlusion. After several attempts it was apparent that this lesion in the proximal circumflex artery was calcified and chronically occluded. After achieving excellent angiograph results the apparatus was removed the sheath was removed good hemostasis was achieved using TR banding patient was transferred to the postop putting in stable condition ANGIOGRAPHIC RESULTS The left main artery Normal The left anterior descending artery As proximal calcified 50% stenoses which clinically was greater than 90% in the proximal portion based on difficulty in delivering stents and balloons. The mid LAD was then occluded after the first septal proc tech and first diagonal artery. The first diagonal artery was moderate in size approximately 2 mm in diameter and has an ostial 90% stenosis followed by an additional proximal 90% stenosis. Despite this NARAYAN III flow was present down the diagonal artery. At the end of the procedure the LAD was widely patent with inline flow to the proximal mid and distal portion as well as NARAYAN-3 flow in the medium sized first diagonal artery T
[2022-03-08 18:30] LABS: Troponin I 0.38 ng/ml (0.00-0.034)
--- NOTE | 2022-03-08 18:30 | PC.NURSE ---
troponin 0.38, notified
--- NOTE | 2022-03-08 18:39 | PC.NURSE ---
1756 - Dr Yost returned call, notified him that a STEMI alert was called in the ED 1757 - Amparo returned call 1800 - Loreto returned call [phone] - Fabiana returned call
--- NOTE | 2022-03-08 18:45 | PC.NURSE ---
pt taken to labor economist per myself
--- NOTE | 2022-03-08 19:12 | PC.NURSE ---
talking with the hospitalist for admission
--- NOTE | 2022-03-08 19:17 | PC.NURSE ---
HS notified of admission
--- NOTE | 2022-03-08 20:07 | PC.NURSE ---
PT ARRIVED TO FLOOR VIA STRETCHER FROM SOFTWARE FIRMWARE ENGINEER AT THIS TIME
[2022-03-08 20:17] LABS: Microscopic, Urine URINE MICROSCOPIC (MICROSCOPIC)
[2022-03-08 20:22] LABS: CATHL Activated Clotting Time 388 SEC (74-125)
[2022-03-08 20:23] LABS: CATHL Activated Clotting Time 339 SEC (74-125)
[2022-03-08 20:27] LABS: Coronavirus 19, PCR Not Detected (NotDetected); Influenza A, PCR Not Detected (NotDetected); Influenza B, PCR Not Detected (NotDetected)
[2022-03-08 20:31] LABS: Appearance,Urine CLEAR (Clear); Bilirubin,Urine Negative (Negative); Blood, Urine 1+ (Negative); Color,Urine YELLOW (Yellow); Glucose,Urine (UA) 3+ (Negative); Ketones,Urine Negative (Negative); Leukocyte Esterase,Urine Negative (Negative); Nitrate,Urine Negative (Negative); PH,Urine 5.5 (5.0-8.5); Protein,Urine Negative (Negative); Urobilinogen,Urine 0.2 EU/dl (0.2)
[2022-03-08 20:41] LABS: RBC,Urine Occasional #/hpf (0-3)
--- NOTE | 2022-03-08 20:51 | EXP.HP ---
History of Present Illness *Admission Date: 03/08/22 *Reason for visit:: Jaw, Left Arm Pain, Dyspnea *History of present illness: Ms. Sandi Shukla is a 82-year-old female with a past medical history that is positive for HTN, Hyperlipidemia, DM, CHF, Hypothyroidism. She presents to due to a 1-day history of back pain that came and went and today left jaw pain that radiated to the left arm associated with SOA. In the ER EKG showed ST elevation in leads V2 and V3, Troponin was elevated at 0.38. The patient was also noted to have a creatinine in the 1.40 and was hypertensive. In the wheelabrator operator the patient underwent a radial approach and had a drug-eluting stent placed in the LAD x2 and Circumflex. She was seen after placement of the stent on the medical surgical unit. Family were at bedside. Cardiology note was reviewed and recommendations will be placed. [facility] Disclaimer: The information contained in this section may have been updated after the patient was seen, as this information can be updated by other users. Medical History Arthritis Cholecystectomy planned Diabetes mellitus, type 2 History of gastroesophageal reflux (GERD) History of heart attack Hyperlipidemia Hypertension Menopause Pneumonia Urinary tract infection Surgical History H/O arthroscopy of shoulder H/O colonoscopy H/O: hysterectomy History of esophagogastroduodenoscopy (EGD) History of knee replacement, total Family History Mother Family history of myocardial infarction Other Family history of diabetes mellitus type II Social History Smoking Status: Former smoker alcohol intake: never current occupational status: retired Travel in the last 8 weeks: None housing: apartment Review of Systems Review of Systems Review of systems:: pertinent systems reviewed and negative unless documented below Constitutional Constitutional: Reports system reviewed and no additional complaints, except as documented Eyes Eyes: Reports system reviewed and no additional complaints, except as documented ENT Ears, Nose, Mouth, and Throat: Reports system reviewed and no additional complaints, except as documented *Cardiovascular Cardiovascular: Reports dyspnea Comments: jaw pain, back pain *Respiratory Respiratory: Reports system reviewed and no additional complaints, except as documented and Reports dyspnea *Gastrointestinal Gastrointestinal: Reports nausea *Genitourinary Genitourinary: Reports system reviewed and no additional complaints, except as documented *Musculoskeletal Musculoskeletal: Reports system reviewed and no additional complaints, except as documented Integumentary/Breasts Skin/Breast: Reports system reviewed and no additional complaints, except as documented *Neurologic Neurologic: Reports system reviewed and no additional complaints, except as documented Psychiatric Psychiatric: Reports system reviewed and no additional complaints, except as documented Endocrine Endocrine: Reports system reviewed and no additional complaints, except as documented Hematologic/Lymphatic Hematologic/Lymphatic: Reports system reviewed and no additional complaints, except as documented Allergic/Immunologic Allergic/Immunologic: Reports system reviewed and no additional complaints, except as documented Meds Home Medications and Allergies Home Medications Medication Instructions Recorded Confirmed Type insulin glargine 100 unit/mL 40 unit SQ BID Diabetes 03/02/19 03/09/22 History subcutaneous solution levothyroxine 50 mcg tablet 50 mcg PO DAILY thyroid 03/02/19 03/08/22 History lisinopril 20 mg tablet 20 mg PO DAILY htn 03/02/19 03/08/22 History metoprolol tartrate 50 mg tablet 25 mg PO BID htn 03/02/19 03/08/22 History
[2022-03-09] VITALS (17 sets, daily range): BP systolic 118–164; BP diastolic 49–97; PULSE 50–81; RESP 16–20; TEMP 36.5–37.2; O2SAT 92–98; BMI 38.2
--- NOTE | 2022-03-09 00:26 | PC.NURSE ---
Pt has done fine since arriving to the floor. Radial band removed w/o difficulty. No bleeding or bruising noted to cath site. Pt had one episode of N/V this shift, PRN zofran ordered and given to pt w/ satisfactory results. Pt SBP has been <160 this shift and nitro gtt has been placed on standby. Pt not complaining of any chest pain or SOB. Pt desats to upper 80's while asleep, 2LNC applied to pt for o2 sats >94%. Pt has been NSR on tele. Berumen cath draining clear, light yellow urine. Pt has diuresed approx 1.5L this shift. Pt currently resting w/ eyes closed at this time. Bedside report given to CAREY Duncan who will take over care.
--- NOTE | 2022-03-09 03:30 | PC.NURSE ---
Pt denies any discomfort. Radial cath site with DSG C/D/I. No hematoma noted. VSS at this time. Nitro gtt placed on standby @ 0000. Pt NSR to sinus gerardo on telemetry with ST depression. F/C draining to bedside with clear, yellow urine. No BM. Call light within reach.
[2022-03-09 06:15] LABS: POC Glucose,Bedside 171 (70-110)
--- NOTE | 2022-03-09 07:49 | EXP.ACUTE.PN ---
Subjective *Date: 03/09/22 *Time: 10:13 Interval history: Patient doing well this morning. Stable on room air. Heart rate controlled in the 60s. Blood pressure marginally elevated, getting first dose of Entresto this morning. Denies any chest pain, nausea, vomiting, diarrhea. Did have a single episode of emesis overnight after coming off anesthesia. Tolerated breakfast without difficulty. Overall states she feels better. No events on telemetry Medical Exam Vital signs and Labs for Last 24 Hours: Vital Signs Temp Pulse Pulse Resp BP BP Pulse Ox 03/09/22 07:00 58 L 20 164/97 H 93 L 03/09/22 06:58 60 03/09/22 06:00 55 L 18 118/51 L 92 L 03/09/22 05:00 62 17 137/59 L 92 L 03/09/22 04:00 97.9 F 03/09/22 03:00 50 L 18 145/60 H 98 03/09/22 00:00 50 L 03/08/22 21:00 60 03/09/22 02:00 51 L 16 153/53 H 98 03/09/22 01:00 55 L 19 158/52 H 95 03/09/22 00:00 97.7 F 66 18 132/66 95 03/08/22 23:00 57 L 17 132/61 98 03/08/22 23:00 70 19 132/61 95 03/08/22 22:00 64 18 139/63 93 L 03/08/22 21:30 56 L 18 150/67 H 91 L 03/08/22 21:00 63 19 151/71 H 90 L 03/08/22 20:45 64 18 176/89 H 90 L 03/08/22 20:30 55 L 17 152/72 H 90 L 03/08/22 22:30 56 L 18 132/49 L 92 L 03/08/22 20:15 59 L 17 176/87 H 91 L 03/08/22 20:00 90 L 03/08/22 20:00 97.1 F L 81 20 151/71 H 90 L 03/08/22 18:56 97.8 F 65 18 159/64 H 03/08/22 19:01 18 03/08/22 18:31 65 159/64 H 96 03/08/22 18:14 76 198/71 H 97 03/08/22 18:18 81 03/08/22 17:54 97.8 F 81 18 198/71 H 96 Intake and Output 03/08/22 03/08/22 03/09/22 15:59 23:59 07:59 Intake Total 0.05 / 0.05 / 25 Output Total 1560 / 1560 600 / 600 Balance -1559.95 / -1559.95 -575 / -575 Intake: Intake, Total IV Amount 0.05 / 0.05 Nitroglycerin in 5 % Dextrose 250 ml @ 10 MCG/MIN 3 mls/hr IV .Q24H [facility] Rx#:[id number] Output: Output, Urine Amount 1560 / 1560 600 / 600 Other: Number of Unmeasured Voids 0 0 Weight 85.8 kg 88.224 kg Patient Weight 03/09/22 23:59 Weight 88.224 kg Laboratory Results - last 24 hr 03/08/22 17:55: WBC 8.7, RBC 5.20, Hgb 15.9, Hct 49.8 H, MCV 95.8, MCH 30.5, MCHC 31.9, RDW 14.0, Plt Count 280, MPV 8.6, Neut % (Auto) 48.9, Lymph % (Auto) 34.8, [place] % (Auto) 8.5, Eos % (Auto) 6.4, Baso % (Auto) 1.3, Neut # (Auto) 4.3, Lymph # (Auto) 3.0, [place] # (Auto) 0.7, Eos # (Auto) 0.6 H, Baso # (Auto) 0.1 03/08/22 17:55: Sodium 136, Potassium 4.3, Chloride 103, Carbon Dioxide 28, Anion Gap 9.3, BUN 28 H, Creatinine 1.40 H, Estimated Creat Clear 41, Estimated GFR 36 L, Est GFR ( Amer) 43 L, Glucose 195 H, Calcium 8.9, Troponin I 0.38 H 03/08/22 19:46: Activated Clotting Time 339 H* 03/08/22 19:54: Urine Color Yellow, Urine Appearance Clear, Urine pH 5.5, Ur Specific [place] 1.010, Urine Protein Negative, Urine Glucose (UA) 3+, Urine Ketones Negative, Urine Blood 1+, Urine Nitrate Negative, Urine Bilirubin Negative, Urine Urobilinogen 0.2, Ur Leukocyte Esterase Negative, Urine RBC Occasional, Urine WBC None, Ur Squamous Epith Cells None, Urine Bacteria None 03/08/22 20:00: SARS-CoV-2 (PCR) Not detected, Influenza A Untype (PCR) Not detected, Influenza Type B (PCR) Not detected 03/08/22 20:23: Activated Clotting Time 388 H* 03/09/22 05:51: POC Glucose 171 H I & O for Labs for Last 24 Hours: Intake & Output 03/06/22 03/07/22 03/08/22 03/09/22 23:59 23:59 23:59 23:59 Intake Total 0.05 / 0.05 Output Total 1560 / 1560 600 / 600 Balance -1559.95 / -1559.95 -575 / -575 Weight 85.8 kg 88.224 kg Constitutional: Present no acute distress and obese Head: Present atraumatic and normocephalic ENT: Present normal exam Neck: Present normal inspection Respiratory: Present normal respiratory effort; Absent accessory muscl
--- NOTE | 2022-03-09 07:59 | P.CONPHA_ITS ---
Pharmacy Intervention Comments: MEDICATION RECONCILIATION COMPLETED ON PATIENT USING EXTERNAL FILL HISTORY FROM PHARMACY. -JUAN DAVID ZHANG, ROGELIOD
--- NOTE | 2022-03-09 07:59 | HMH.PHAINT1 ---
Pharmacy Intervention Comments: MEDICATION RECONCILIATION COMPLETED ON PATIENT USING EXTERNAL FILL HISTORY FROM PHARMACY. -JUNA DAVID ZHANG, ROGELIOD
[2022-03-09 08:35] LABS: Basophils # 0.1 K/mm3 (0-0.2); Basophils % 1.1 % (0.1-2.0); Eosinophils # 0.1 K/mm3 (0.0-0.4); Eosinophils % 0.9 % (0.1-12.0); Hematocrit 50.3 % (37.0-47.0); Hemoglobin 15.9 g/dL (12.2-16.2); Lymphocytes # 1.7 K/mm3 (0.7-4.5); Lymphocytes % 17.4 % (10-50); Mean Corpuscular HGB Conc 31.6 g/dL (31.8-35.4); Mean Corpuscular Hemoglobin 30.5 pg (27.0-31.2); Mean Corpuscular Volume 96.5 fl (81-99); Mean Platelet Volume 9.4 fl (7.4-10.4); Monocytes # 0.8 K/mm3 (0.1-1.0); Monocytes % 7.7 % (1.7-9.3); Neutrophils # 7.2 K/mm3 (1.8-7.8); Neutrophils % 72.9 % (37.0-80.0); Platelet Count 304 K/mm3 (142-424); Red Blood Count 5.22 M/mm3 (4.20-5.40); Red Cell Distribution Width 14.2 % (11.5-17.5); White Blood Count 9.9 K/mm3 (4.8-10.8)
[2022-03-09 08:37] LABS: Chloride 102 mmol/L (98-107); Potassium 4.2 mmoL/L (3.5-5.1); Sodium 137 mmol/L (136-145)
[2022-03-09 08:40] LABS: Anion Gap 9.2 mEq/L (5-15); Blood Urea Nitrogen 29 mg/dl (7-17); Carbon Dioxide 30 mmol/L (22.0-30.0); Creatinine Clearance Estimated 40 mL/min (50-200); Estimated Glomerular Filt Rate 33 ml/min (>60); GFR (African American) 40 ML/MIN (>60)
[2022-03-09 08:41] LABS: Calcium 9.1 mg/dl (8.4-10.2); Chol/HDL Ratio 3.3 (1-3.5); Cholesterol 216 mg/dl (140-200); Glucose 143 mg/dl (74-100); HDL Cholesterol 65 mg/dl (40-60); Triglycerides 135 mg/dl (30-150); VLDL Cholesterol 27 mg/dL (0-40)
[2022-03-09 12:30] LABS: POC Glucose,Bedside 176 (70-110)
[2022-03-09 12:30] LABS: POC Glucose,Bedside 181 (70-110)
[2022-03-09 16:34] LABS: POC Glucose,Bedside 174 (70-110)
--- NOTE | 2022-03-09 16:48 | PC.NURSE ---
pt has been up to the chair some this shift, remains on room air with O2 sats 92-97%, does have a dry non productive intermittent cough, has been slightly bradycardic at times, with HR 53-81, SBP 129-164, right radial cath site with dressing in place, C/D/I, no complaints of chest pain or SOA
[2022-03-09 22:22] LABS: POC Glucose,Bedside 163 (70-110)
[2022-03-10] VITALS: BP 107/45; PULSE 50; PULSE 65; RESP 22; TEMP 37.2; O2SAT 95
[2022-03-10 03:57] VITALS: PULSE 60
[2022-03-10 04:00] VITALS: BP 135/43; PULSE 64; RESP 18; TEMP 36.8; O2SAT 92
[2022-03-10 05:00] VITALS: BMI 38.4
--- NOTE | 2022-03-10 06:00 | CA_ITS ---
FINAL REPORT TECHNIQUE: Grayscale, color Doppler and duplex Doppler ultrasound of the kidneys, aorta and renal arteries was performed. Multiple velocities were measured. CLINICAL HISTORY: Elevated Creatinine, HTN FINDINGS: Aorta velocity: 73.3 cm/sec Right kidney: 9.6 cm. There is a probable 3.7 x 3.1 cm cyst in the mid right kidney. Right intrarenal RI: 0.89 Right renal artery velocity: 148 cm/sec. Right RAR (Renal artery-Aortic Ratio): 2.02 Left Kidney: 10.3 cm. No evidence of hydronephrosis or mass. Left intrarenal RI: 0.82 Left renal artery velocity: 202 cm/sec. Left RAR (Renal Artery-Aortic Ratio): 2.76 IMPRESSION: No evidence of significant right renal artery stenosis. Less than 60% left renal artery stenosis. Consider CTA or catheter angiogram for further evaluation. Reviewed, Interpreted and Dictated by Tyrone Naik III, MD Transcribed by Daiana Yang Authenticated and [facility]
[2022-03-10 06:06] LABS: Basophils # 0.1 K/mm3 (0-0.2); Basophils % 1.1 % (0.1-2.0); Eosinophils # 0.4 K/mm3 (0.0-0.4); Eosinophils % 3.9 % (0.1-12.0); Lymphocytes # 1.7 K/mm3 (0.7-4.5); Lymphocytes % 18.9 % (10-50); Mean Corpuscular Hemoglobin 31.1 pg (27.0-31.2); Mean Corpuscular Volume 97.3 fl (81-99); Mean Platelet Volume 8.8 fl (7.4-10.4); Monocytes # 0.7 K/mm3 (0.1-1.0); Monocytes % 8.1 % (1.7-9.3); Neutrophils # 6.2 K/mm3 (1.8-7.8); Neutrophils % 68.1 % (37.0-80.0); Platelet Count 273 K/mm3 (142-424); Red Blood Count 5.14 M/mm3 (4.20-5.40); Red Cell Distribution Width 14.3 % (11.5-17.5); White Blood Count 9.1 K/mm3 (4.8-10.8)
[2022-03-10 06:17] LABS: Chloride 103 mmol/L (98-107); Potassium 3.8 mmoL/L (3.5-5.1); Sodium 134 mmol/L (136-145)
[2022-03-10 06:19] LABS: Blood Urea Nitrogen 31 mg/dl (7-17); Creatinine Clearance Estimated 46 mL/min (50-200); Estimated Glomerular Filt Rate 39 ml/min (>60); GFR (African American) 47 ML/MIN (>60)
[2022-03-10 06:20] LABS: Alanine Aminotransferase 54 U/L (12-78); Albumin Level 3.8 g/dl (3.5-5.0); Albumin/Globulin Ratio 1.2 (1.1-1.8); Alkaline Phosphatase 79 U/L (38-126); Anion Gap 8.8 mEq/L (5-15); Aspartate Amino Transferase 131 U/L (14-36); Bilirubin,Total 0.6 mg/dl (0.2-1.3); Calcium 8.6 mg/dl (8.4-10.2); Carbon Dioxide 26 mmol/L (22.0-30.0); Globulin 3.3 g/dL (1.3-3.2); Total Protein,Serum 7.1 g/dl (6.3-8.2)
[2022-03-10 06:24] LABS: Glucose 105 mg/dl (74-100)
--- NOTE | 2022-03-10 07:36 | PC.NURSE ---
pt has rested well this shift. A&OX4. pt stated she was feeling SOB, she is now on 2L O2 per nasal canula and reports feeling better. no other acute changes since previous assessment. call bhatia in reach.
[2022-03-10 07:38] LABS: POC Glucose,Bedside 99 (70-110)
--- NOTE | 2022-03-10 07:49 | EXP.DC.SUM ---
General Admission date:: 03/08/22 Discharge date: 03/10/22 HPI HPI HPI: Ms. Sandi Shukla is a 82-year-old female with a past medical history that is positive for HTN, Hyperlipidemia, DM, CHF, Hypothyroidism. She presents to [facility] due to a 1-day history of back pain that came and went and today left jaw pain that radiated to the left arm associated with SOA. In the ER EKG showed ST elevation in leads V2 and V3, Troponin was elevated at 0.38. The patient was also noted to have a creatinine in the 1.40 and was hypertensive. In the labor gang supervisor the patient underwent a radial approach and had a drug-eluting stent placed in the LAD x2 and Circumflex. She was seen after placement of the stent on the medical surgical unit. Family were at bedside. Cardiology note was reviewed and recommendations will be placed. Hospital Course Hospital Course Hospital Course: 82-year-old female with past medical history of Hypertension, DM, Hyperlipidemia, CHF and Hypothyroidism presents with a one-day history of back pain and today with history of jaw pain associated with SOA, EKG showed ST elevation in anterior leads with elevated troponin, taken to labor gang supervisor and underwent radial approach with MARY BETH x 2 to LAD and circumflex. Patient monitored on telemetry for 48 hours. Echo and renal duplex obtained prior to discharge. Remained hemodynamically stable tolerating goal-directed therapy. Stable for discharge home. Problems addressed as follows: Anterior STEMI Hypertension HFpEF -Admitted for STEMI. Cushion Worker activated on arrival. Patient underwent left heart cath with successful stenting of LAD with 3 consecutive stents. Angioplasty was attempted at the occluded circumflex artery but was unsuccessful.? The patient has persistent severe stenosis to the first diagonal artery and persistent moderate disease to the right coronary artery.? She will remain on aspirin and Brilinta for dual antiplatelet therapy. Additionally cardiology recommended echo and renal duplex given severe hypertension. Renal duplex shows no stenosis on the right and less than 60% stenosis on the left. Preliminary echocardiogram shows an ejection fraction between 45 and 60%. Still pending formal read. No wall motion abnormalities. Started on goal-directed therapy including high intensity statin, aspirin, Brilinta, beta-scottie and ARNI. Tolerating medication with good control of blood pressure on Entresto and metoprolol. LDL goal less than 55, LDL 85 on 03/09. Plan for daily Lasix given elevated RVSP. Plan for follow-up with cardiology in a week. Cardiology recommends cardiac rehab. Medically stable for discharge home at this time. No indication for LifeVest. DARIUSZ -Creatinine appears to be back to baseline on day of discharge. Tolerating medications with no further elevation on discharge Hyperlipidemia - High Intensity Dose Statin ordered. Cholesterol as mentioned above. Repeat labs in 4 to 6 weeks to monitor improvement in LDL Hypothyroidism - Continued home medication, stable Stable for discharge home. Meds provided via meds to beds. Exam Data for Last 24 hours Vital signs and Labs for Last 24 Hours: Temp Pulse Resp BP Pulse Ox 98.2 F 64 18 135/43 L 92 L 03/10/22 04:00 03/10/22 04:00 03/10/22 04:00 03/10/22 04:00 03/10/22 04:00 Laboratory Results - last 24 hr 03/08/22 21:36: POC Glucose 176 H 03/09/22 06:41: WBC 9.9, RBC 5.22, Hgb 15.9, Hct 50.3 H, MCV 96.5, MCH 30.5, MCHC 31.6 L, RDW 14.2, Plt Count 304, MPV 9.4, Neut % (Auto) 72.9, Lymph % (Auto) 17.4, [place] % (Auto) 7.7, Eos % (Auto) 0.9, Baso % (Auto) 1.1, Neut # (Auto) 7.2, Lymph # (Auto) 1.7, [place] # (Auto) 0.8, Eos # (Auto) 0.1, Baso # (Auto) 0.1 03/09/22 06:41: Sodium 137, Potassium 4.2, Chloride 102, Carbon Dioxide 30, Anion Gap 9.2, BUN 29 H, Creatinine 1.50 H, Estimated Creat Clear 40, Estimated GFR 33 L, Est GFR ( Amer) 40 L, Glucose 143 H D, Calcium 9.1, Triglycerides 135,
[2022-03-10 08:00] VITALS: BP 114/51; PULSE 61; RESP 19; TEMP 36.7; O2SAT 97
[2022-03-10 11:30] VITALS: BP 115/47; PULSE 58; RESP 18; TEMP 36.7; O2SAT 95
[2022-03-10 11:45] LABS: POC Glucose,Bedside 138 (70-110)
--- NOTE | 2022-03-10 12:42 | EXP.CARD.CON ---
History of Present Illness History of Present Illness Consult date: 03/10/22 Requesting physician: Bear Avendaño Consult reason: chest pain Chief complaint: chest pain History of present illness: This is an 82-year-old white female who presented to the emergency department with complaints of back pain for approximately 1 day and left jaw pain that radiated into her left arm. This was associated with shortness of breath. The patient states that the pain was severe and had only been occurring for 1 day. But the symptoms would not resolve. When the patient got to the emergency department she was found to have ST elevation in leads V2 and V3. Her troponin was elevated at 0.38. The patient was taken directly to the cardiac catheterization laboratory and had an acute anterior STEMI involving the LAD where she had 3 drug-eluting stents placed. The patient had persistent severe stenosis to the first diagonal artery. Attempted angioplasty of the chronically occluded circumflex artery and at the end of the procedure she had persistent chronically occluded circumflex artery. She also had moderate disease in the right coronary artery. The patient has been getting Brilinta and aspirin for dual antiplatelet therapy. This morning she denies any chest pain or pressure. She does complain of some shortness of breath sometimes when she lies down. But she states her shortness of breath is much better. She denies any fever, chills, nausea, vomiting, diarrhea, PND or orthopnea. Left cardiac catheterization shows: Acute anterior ST elevation myocardial infarction with successful reconstruction of the proximal mid and distal LAD with 3 contiguous drug-eluting stents Persistent severe stenosis and a medium sized first diagonal artery accompanied by NARAYAN-3 flow Attempted angioplasty of a chronically occluded circumflex artery. Persistent chronically occluded circumflex artery Moderate disease in the proximal to mid dominant right coronary artery Reduced ejection fraction with regional wall motion abnormality Severely elevated LVEDP PLAN 1. Brilinta 90 twice daily plus aspirin 81 mg daily 2. LDL less than 55 to be achieved with high intensity statin 3. Nitroglycerin drip to help control hypertension 4. Recommend renal duplex due to creatinine of 1.4 and severe hypertension.? Renal artery stenosis is suspected 5. Supportive care with continuous telemetry for the next 48 hours 6. Echocardiogram Thursday.? It appears patient's ejection fraction is high enough based on the left ventriculogram where LifeVest is not warranted however would like to confirm with echocardiogram on Thursday 7. Cardiac rehabilitation 8. Add Entresto and beta-blockers as hemodynamics allow 9. Patient may benefit from loop diuretics due to the severely elevated LVEDP [facility] Disclaimer: The information contained in this section may have been updated after the patient was seen, as this information can be updated by other users. Medical History (Updated 03/10/22 @ 12:46 by Gladys Barrera APRN) Arthritis Cholecystectomy planned Diabetes mellitus, type 2 Elevated left ventricular end-diastolic pressure (LVEDP) History of gastroesophageal reflux (GERD) History of heart attack Hyperlipidemia Hypertension Menopause Pneumonia ST elevation myocardial infarction (STEMI) of anterior wall Urinary tract infection Surgical History H/O arthroscopy of shoulder H/O colonoscopy H/O: hysterectomy History of esophagogastroduodenoscopy (EGD) History of knee replacement, total Family History Mother Family history of myocardial infarction Other Family history of diabetes mellitus type II Social History Smoking Status: Former smoker alcohol intake: never current occupational status: retired Travel in the last 8 weeks: None hous
--- NOTE | 2022-03-10 16:18 | HMH.PHACL ---
[facility] Care Manager Discharge Med Casino Operations Supervisor: Sandi Shukla has received discharge medication counseling on the following medications: STOPPING SIMVASTATIN 10 MG HS AND LISINOPRIL 20 MG DAILY. PATIENT IS NOW TAKING METOPROLOL TARTRATE 25 MG BID, ENTRESTO 24/26 MG BID, BRILINTA 90 MG BID, ATORVASTATIN 80 MG HS, AND ASPIRIN 81 MG DAILY.
--- NOTE | 2022-03-11 13:30 | CARE MANAGER ---
Spoke with patient for post-discharge phone interview, patient states that she is feeling well and has no issues at this time.
== END 2022-03-10 14:27 | disposition home or self-care (01) | DRG 247 ==
LOC: ER 18:58 → CATHLAB 19:06 → 2ND 19:07
PROVIDERS: Internal Medicine; Admitting Provider Internal Medicine Adolescent Medicine; Emergency Provider Emergency Medicine; PCP Nurse Practitioner; Visit Provider Internal Medicine Adolescent Medicine
PROC: 027036Z Dilation of Coronary Artery, One Artery with Three Drug-eluting Intraluminal Devices, Percutaneous Approach (ICD-10-PCS; principal; 2022-03-08 18:25)
DX: I21.09 ST elevation (STEMI) myocardial infarction involving other coronary artery of anterior wall (principal); N17.9 Acute kidney failure, unspecified; I25.10 Atherosclerotic heart disease of native coronary artery without angina pectoris; I25.2 Old myocardial infarction; E11.9 Type 2 diabetes mellitus without complications; E78.00 Pure hypercholesterolemia, unspecified; I50.9 Heart failure, unspecified; E78.5 Hyperlipidemia, unspecified; M19.90 Unspecified osteoarthritis, unspecified site; Z79.4 Long term (current) use of insulin; Z87.891 Personal history of nicotine dependence; I11.0 Hypertensive heart disease with heart failure; E03.9 Hypothyroidism, unspecified
CPT/HCPCS: 36415; 71045; 80048; 80053; 80061; 81001; 82962; 84484; 85025; 85347; 92920; 92941; 93005; 93306; 93458; 93976; 99152; 99153; 99291; C1725; C1760; C1769; C1876; C9606; C9803; J1644; J2405; Q9967; U0003; U0005

== ENCOUNTER 2022-04-03 12:46 | Outpatient (RCR) | payer MEDICARE, BC, SELFPAY | END 2022-06-03 13:00 | disposition home or self-care (01) | LOC: PT 12:46 | PROVIDERS: Visit Provider Internal Medicine | DX: I25.10 Atherosclerotic heart disease of native coronary artery without angina pectoris (principal) | CPT/HCPCS: 93798 ==

== ENCOUNTER → 2022-07-14 12:51 | Outpatient (CLI) | payer MEDICARE, BC, SELFPAY | PROVIDERS: PCP Nurse Practitioner; Visit Provider Nurse Practitioner Family | DX: E11.69 Type 2 diabetes mellitus with other specified complication (principal); E66.9 Obesity, unspecified; I21.09 ST elevation (STEMI) myocardial infarction involving other coronary artery of anterior wall; I25.10 Atherosclerotic heart disease of native coronary artery without angina pectoris; I50.20 Unspecified systolic (congestive) heart failure; R94.30 Abnormal result of cardiovascular function study, unspecified; Z68.38 Body mass index [BMI] 38.0-38.9, adult; Z79.4 Long term (current) use of insulin | CPT/HCPCS: 93306 ==

== ENCOUNTER → 2023-01-01 15:00 | Outpatient (CLI) | payer MEDICARE, BC, SELFPAY ==
[2023-01-01 15:16] LABS: Basophils # 0.1 K/mm3 (0-0.2); Basophils % 0.6 % (0.1-2.0); Eosinophils # 0.3 K/mm3 (0.0-0.4); Eosinophils % 3.1 % (0.1-12.0); Hematocrit 49.4 % (37.0-47.0); Hemoglobin 15.8 g/dL (12.2-16.2); Lymphocytes % 33.9 % (10-50); Mean Corpuscular HGB Conc 32.1 g/dL (31.8-35.4); Mean Corpuscular Hemoglobin 30.2 pg (27.0-31.2); Mean Corpuscular Volume 94.1 fl (81-99); Monocytes # 0.5 K/mm3 (0.1-1.0); Monocytes % 6.1 % (1.7-9.3); Neutrophils # 4.9 K/mm3 (1.8-7.8); Neutrophils % 56.2 % (37.0-80.0); Platelet Count 305 K/mm3 (142-424); Red Blood Count 5.24 M/mm3 (4.20-5.40); White Blood Count 8.7 K/mm3 (4.8-10.8)
[2023-01-01 16:16] LABS: Alanine Aminotransferase 29 U/L (12-78); Albumin Level 3.9 g/dl (3.5-5.0); Alkaline Phosphatase 63 U/L (38-126); Anion Gap 16.8 mEq/L (5-15); Aspartate Amino Transferase 33 U/L (14-36); Bilirubin,Direct 0.2 mg/dl (0.0-0.4); Bilirubin,Indirect 0.2 mg/dL (0.0-0.9); Bilirubin,Total 0.4 mg/dl (0.2-1.3); Bilirubin,Unconjugated 0.2 mg/dL (0.0-1.1); Blood Urea Nitrogen 26 mg/dl (7-17); Calcium 9.1 mg/dl (8.4-10.2); Carbon Dioxide 24 mmol/L (22.0-30.0); Chloride 104 mmol/L (98-107); Chol/HDL Ratio 2.1 (1-3.5); Cholesterol 166 mg/dl (140-200); Estimated Glomerular Filt Rate 43 ml/min (>60); GFR (African American) 52 ML/MIN (>60); Glucose 188 mg/dl (74-100); HDL Cholesterol 80 mg/dl (40-60); Potassium 4.8 mmoL/L (3.5-5.1); Sodium 140 mmol/L (136-145); Total Protein,Serum 7.6 g/dl (6.3-8.2); Triglycerides 138 mg/dl (30-150); VLDL Cholesterol 28 mg/dL (0-40)
[2023-01-01 16:27] LABS: Direct LDL Cholesterol 75.74 mg/dL (100-129)
[2023-01-01 16:34] LABS: Free T4 (Free Thyroxine) 0.97 ng/dl (0.78-2.19)
[2023-01-01 16:49] LABS: Thyroid Stimulating Hormone 2.88 uIU/mL (0.465-4.68)
== END ==
PROVIDERS: PCP Nurse Practitioner; Visit Provider Nurse Practitioner
DX: E11.69 Type 2 diabetes mellitus with other specified complication (principal); E66.9 Obesity, unspecified; E78.5 Hyperlipidemia, unspecified; I10 Essential (primary) hypertension; I25.10 Atherosclerotic heart disease of native coronary artery without angina pectoris; I50.20 Unspecified systolic (congestive) heart failure; R94.30 Abnormal result of cardiovascular function study, unspecified
CPT/HCPCS: 36415; 80048; 80061; 80076; 83735; 84439; 84443; 85025

== ENCOUNTER 2023-07-16 13:34 | Outpatient (CLI) | payer MEDICARE, BC, SELFPAY ==
[2023-07-16 14:20] LABS: Basophils # 0.1 K/mm3 (0-0.2); Basophils % 1.3 % (0.1-2.0); Eosinophils # 0.3 K/mm3 (0.0-0.4); Hematocrit 46.7 % (37.0-47.0); Hemoglobin 14.7 g/dL (12.2-16.2); Lymphocytes % 36.1 % (10-50); Mean Corpuscular HGB Conc 31.5 g/dL (31.8-35.4); Mean Corpuscular Hemoglobin 30.7 pg (27.0-31.2); Mean Corpuscular Volume 97.6 fl (81-99); Mean Platelet Volume 9.2 fl (7.4-10.4); Monocytes # 0.6 K/mm3 (0.1-1.0); Monocytes % 7.4 % (1.7-9.3); Neutrophils # 4.3 K/mm3 (1.8-7.8); Neutrophils % 52.2 % (37.0-80.0); Platelet Count 274 K/mm3 (142-424); Red Blood Count 4.78 M/mm3 (4.20-5.40); Red Cell Distribution Width 14.1 % (11.5-17.5); White Blood Count 8.2 K/mm3 (4.8-10.8)
[2023-07-16 15:37] LABS: Chloride 107 mmol/L (98-107); Potassium 4.4 mmoL/L (3.5-5.1); Sodium 141 mmol/L (136-145)
[2023-07-16 15:39] LABS: Alanine Aminotransferase 25 U/L (12-78); Aspartate Amino Transferase 34 U/L (14-36); Bilirubin,Unconjugated 0.2 mg/dL (0.0-1.1); Blood Urea Nitrogen 23 mg/dl (7-17); Estimated Glomerular Filt Rate 43 ml/min (>60); GFR (African American) 52 ML/MIN (>60)
[2023-07-16 15:40] LABS: Albumin Level 3.7 g/dl (3.5-5.0); Alkaline Phosphatase 66 U/L (38-126); Anion Gap 10.4 mEq/L (5-15); Bilirubin,Direct 0.3 mg/dl (0.0-0.4); Bilirubin,Indirect 0.2 mg/dL (0.0-0.9); Bilirubin,Total 0.5 mg/dl (0.2-1.3); Calcium 9.2 mg/dl (8.4-10.2); Carbon Dioxide 28 mmol/L (22.0-30.0); Chol/HDL Ratio 2.6 (1-3.5); Cholesterol 166 mg/dl (140-200); Glucose 160 mg/dl (74-100); HDL Cholesterol 65 mg/dl (40-60); Magnesium 2.2 mg/dl (1.6-2.3); Total Protein,Serum 6.8 g/dl (6.3-8.2); Triglycerides 171 mg/dl (30-150); VLDL Cholesterol 34 mg/dL (0-40)
[2023-07-16 15:51] LABS: Direct LDL Cholesterol 67.89 mg/dL (100-129)
[2023-07-16 15:56] LABS: Free T4 (Free Thyroxine) 1.02 ng/dl (0.78-2.19)
[2023-07-16 17:21] LABS: Thyroid Stimulating Hormone 2.75 uIU/mL (0.465-4.68)
== END 2023-07-16 23:59 | disposition home or self-care (01) ==
LOC: LAB 13:35
PROVIDERS: PCP Nurse Practitioner; Visit Provider Physician Assistant
DX: R94.30 Abnormal result of cardiovascular function study, unspecified (principal); E66.9 Obesity, unspecified; E78.5 Hyperlipidemia, unspecified; E03.9 Hypothyroidism, unspecified; I10 Essential (primary) hypertension; E11.69 Type 2 diabetes mellitus with other specified complication; I25.10 Atherosclerotic heart disease of native coronary artery without angina pectoris; Z68.41 Body mass index [BMI] 40.0-44.9, adult
CPT/HCPCS: 36415; 80048; 80061; 80076; 83735; 84439; 84443; 85025

== ENCOUNTER → 2023-07-29 06:52 | Outpatient (CLI) | payer MEDICARE, BC, SELFPAY | LOC: SL 06:53 | PROVIDERS: PCP Physician Assistant; Visit Provider Physician Assistant | DX: G47.33 Obstructive sleep apnea (adult) (pediatric) (principal); G47.36 Sleep related hypoventilation in conditions classified elsewhere | CPT/HCPCS: G0399 ==

== ENCOUNTER 2023-12-18 07:17 | Emergency (ER) | payer MEDICARE, BC, SELFPAY ==
[2023-12-18] VITALS (9 sets, daily range): BP systolic 98–183; BP diastolic 57–109; PULSE 50–64; RESP 16; TEMP 36.6–37.1; O2SAT 88–98; BMI 37.5
--- NOTE | 2023-12-18 07:32 | CT_ITS ---
FINAL REPORT CLINICAL HISTORY: abd pain, diarrhea COMPARISON: None FINDINGS: CT OF THE ABDOMEN AND PELVIS WITH CONTRAST Axial CT images of the abdomen and pelvis were obtained after the administration of IV contrast. Coronal and sagittal reformatted images were also obtained and reviewed. This study was performed with techniques to keep radiation doses as low as reasonably achievable (ALARA). Individualized dose reduction techniques using automated exposure control or adjustment of mA and/or kV according to the patient'size were employed. Abdomen: Bibasilar atelectasis is present.. The heart is normal in size. The gallbladder has been surgically resected. Pneumobilia is present, likely postoperative change. The spleen is unremarkable. There is a 12 mm left adrenal nodule present, nonspecific. The pancreas has an unremarkable appearance. There is a 27 mm right renal cyst present, without evidence of a renal mass or hydronephrosis. No follow-up is required. The aorta is normal in caliber. There is no free fluid or adenopathy. No mass or abnormal fluid collection is seen. Pelvis: The appendix is normal in appearance. The uterus has been surgically resected. The urinary bladder is unremarkable. There is sigmoid diverticulosis without evidence of acute inflammatory change. There is no evidence of mass or adenopathy. There is no evidence of bowel obstruction. IMPRESSION: The gallbladder has been surgically resected, and pneumobilia is present, likely postoperative change. There is a 12 mm left adrenal nodule, which is nonspecific in appearance. 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 If clinically indicated, would recommend 6-month follow-up exam. No acute intra-abdominal abnormality is identified. Reviewed, Interpreted and Dictated by Tyrone Naik III, MD Transcribed by Marely Luis Authenticated and [facility]
--- NOTE | 2023-12-18 07:34 | ED_ITS ---
Discharge Plan Disposition Patient Disposition: Home, Self-Care Condition: Good Prescriptions Prescriptions: New ondansetron 4 mg tablet,disintegrating 4 mg PO DAILY Qty: 30 0RF levofloxacin 250 mg tablet 250 mg PO DAILY 3 Days Qty: 3 0RF No Action valsartan 80 mg tablet 80 mg PO DAILY Qty: 90 3RF metoprolol tartrate 25 mg tablet 25 mg PO BID Qty: 180 3RF clopidogrel [Plavix] 75 mg tablet 75 mg PO DAILY Qty: 30 11RF atorvastatin 80 mg tablet 80 mg PO HS 30 Days Qty: 90 0RF levothyroxine 50 MCG tablet 50 mcg PO DAILY insulin glargine 100 UNIT/ML solution 40 unit SQ BID omeprazole 40 mg capsule,delayed release(DR/EC) 40 mg PO DAILY Patient Comments: TAKE ONE CAPSULE BY MOUTH ONCE DAILY loratadine 10 mg tablet 10 mg PO DAILY Patient Comments: take 1 tablet (10 mg) by oral route once daily Tradjenta 5 mg tablet 5 mg PO DAILY Patient Comments: take 1 tablet (5 mg) by oral route once daily Jardiance 25 mg tablet 25 mg PO DAILY Patient Comments: TAKE ONE TABLET BY MOUTH EVERY MORNING Trulicity 0.75 mg/0.5 mL pen injector 0.75 mg SQ WEEKLY Patient Comments: inject 0.5 milliliter (0.75 mg) by subcutaneous route every 7 days aspirin 81 mg Tablet,Delayed Release (Dr/Ec) 81 mg PO DAILY 30 Days Qty: 30 0RF furosemide 40 MG tablet 40 mg PO DAILY 30 Days Qty: 30 0RF Referrals Follow up/Referrals: Joelle Robb APRN [Primary Care Provider] - See instructions Activity Restrictions/Add. Instructions Additional Instructions/Restrictions: You have been evaluated in the ED for your complaints. You may follow-up with your PCP in the next 3 to 5 days. Please return to ED for any new or worsening symptoms. I have written for Zofran for nausea and Levaquin to treat your UTI. Please take this as prescribed. Please drink plenty of water over the next several days. Clinical Impressions Clinical Impression: UTI (urinary tract infection), Gastroenteritis, Creatinine elevation, Adrenal nodule Instructions Patient Instructions: DI for Diarrhea and Traveler's Diarrhea -- Adult, DI for Diarrhea and Traveler's Diarrhea -- Child, DI for Nausea -- Adult, DI for Nausea -- Child Print Language Print Language: Spanish Discharge ED Provider: Dayne Peraza Adult HPI General Chief complaint: Nausea/Vomiting/Diarrhea Stated complaint: vomiting, diarrhea, abd pain, weakness Time Seen by Provider: 12/18/23 07:20 Mode of Arrival: Ambulatory Source of Information: Patient Limitations: No Limitations Description of Symptoms (Recalled from ER Triage Doc. by RN): pt reports being sick since 12/19, she saw her PCP yesterday who told her she had a viral infection. pt c/o abd cramping, N/V/D, flatulance, weakness, and bright/yellow/mushy diarrhea. pt denies urinary or respiratory symptoms. History of Present Illness HPI narrative: 83-year-old female with past medical history significant for CAD, NV, GERD, DM2, HLD, HTN, CHF, presents today for evaluation concerning generalized abdominal pain with associated nausea vomiting and diarrhea. Patient states that on Thursday she developed vomiting and nonbloody diarrhea. She states that she was seen by her PCP on yesterday who told her that she had a viral infection that likely caused her symptoms. Patient presents today complaining of 8 out of 10 abdominal cramping. States that she has not had a bowel movement since yesterday after taking Imodium. Denies any fevers, chills, chest pain, shortness of breath, dysuria, hematuria or any other associated symptoms. Related Data Home Medications ?Medication ?Instructions ?Recorded ?Confirmed insulin glargine 100 unit/mL 40 unit SQ BID Diabetes 03/02/19 07/09/23 subcutaneous solution levothyroxine 50 mcg tablet 50 mcg PO DAILY thyroid 03/02/19 07/09/23 dulaglutide 0.75 mg/0.5 mL 0.75 mg SQ WEEKLY Diabetes 03/09/22 07/09/23 subcutaneous pen injector (Trulicity) empagliflozin 25 mg tablet 25 mg PO DAILY Diabetes 03/09/22 07/09/23 (Jardiance) linagliptin 5 mg tablet (Tradjenta) 5 mg PO DAILY Diabetes 03/09/22 07/09/23 loratadine 10 mg tablet 10 mg PO DAILY Allergy symptoms 03/09/22 07/09/23 omeprazole 40 mg capsule,delayed 40 mg PO DAILY GERD 03/09/22 07/09/23 release Previous Rx's ?Medication ?Instructions ?Recorded aspirin 81 mg tablet,delayed 81 mg PO DAILY 30 days #30 tabs 03/10/22 release furosemide 40 mg tablet 40 mg PO DAILY 30 days #30 tabs 03/10/22 clopidogrel 75 mg tablet (Plavix) 75 mg PO DAILY #30 tabs 09/18/22 atorvastatin 80 mg tablet 80 mg PO HS 30 days #90 tabs 09/29/22 valsartan 80 mg tablet 80 mg PO DAILY #90 tabs 10/02/22 metoprolol tartrate 25 mg tablet 25 mg PO BID Hypertension #180 tabs 01/01/23 levofloxacin 250 mg tablet 250 mg PO DAILY 3 days #3 tabs 12/18/23 ondansetron 4 mg disintegrating 4 mg PO DAILY #30 tabs 12/18/23 tablet Allergies Allergy/AdvReac Type Severity Reaction Status Date / Time cephalexin [From Keflex] Allergy Unknown Verified 12/18/23 07:32 allergy reaction nitrofurantoin Allergy Unknown Verified 12/18/23 07:32 [From Macrodantin] allergy reaction Sulfa (Sulfonamide Allergy Rash Verified 12/18/23 07:32 Antibiotics) [facility] Disclaimer: The information contained in this section may have been updated after the patient was seen, as this information can be updated by other users. Medical History (Updated 12/18/23 @ 10:54 by Dayne Peraza DO) Poor sleep Elevated left ventricular end-diastolic pressure (LVEDP) ST elevation myocardial infarction (STEMI) of anterior wall Urinary tract infection Pneumonia Menopause Arthritis History of gastroesophageal reflux (GERD) Diabetes mellitus, type 2 History of heart attack Hyperlipidemia Hypertension Cholecystectomy planned Surgical History H/O colonoscopy History of esophagogastroduodenoscopy (EGD) H/O arthroscopy of shoulder H/O: hysterectomy History of knee replacement, total Family History Mother Family history of myocardial infarction Other Family history of diabetes mellitus type II Social History Smoking Status: Never smoker alcohol intake: never current occupational status: retired Travel in the last 8 weeks: None housing: apartment ROS Obtained: Yes All systems reviewed & no additional complaints except as documented Physical Exam General General appearance: alert and in no apparent distress Head Head exam: atraumatic and normocephalic Eye Eye exam: Present normal appearance, PERRL and EOMI ENT ENT exam: Present normal oropharynx and mucous membranes moist Neck Neck exam: Present full ROM; Absent meningismus Respiratory Respiratory exam: Absent respiratory distress, wheezes, stridor or accessory muscle use Cardiovascular Cardiovascular exam: Present normal rhythm Abdominal Exam Abdominal exam: Present soft and tenderness; Absent distention, guarding, rebound or rigidity Abdominal tenderness: Present diffuse Neurological Exam Neurological exam: Present alert, oriented X3 and CN II-XII intact; Absent motor sensory deficit Psychiatric Psychiatric exam: Present normal affect and normal mood Skin Skin exam: Present warm and dry Medical Decision Making Medical Records Medical records reviewed: Yes I reviewed the patient's medical records. Alvarez Inquiry Pt receiving controlled substance: No Alvarez was queried for this patient: No Vital Signs: 12/18/23 07:23 12/18/23 07:26 12/18/23 07:47 Temperature 97.8 F Temperature Source Oral Pulse Rate 58 L 50 L Pulse Rate [Left] 62 Respiratory Rate 16 Blood Pressure 98/82 L 183/58 H Blood Pressure [Right Arm] 98/82 L Blood Pressure Mean 87 99 Blood Pressure Mean [Right Arm] 87 Blood Pressure Source [Right Arm] Automatic Cuff Blood Pressure Position [Right Arm] Sitting 02 Sat by Pulse Oximetry 88 L 95 93 L Oxygen Delivery Method Room Air Room Air Room Air 12/18/23 08:01 12/18/23 08:31 12/18/23 09:01 Temperature Temperature Source Pulse Rate 64 53 L 50 L Pulse Rate [Left] Respiratory Rate Blood Pressure 176/63 H 149/109 H 166/63 H Blood Pressure [Right Arm] Blood Pressure Mean 93 122 111 Blood Pressure Mean [Right Arm] Blood Pressure Source [Right Arm] Blood Pressure Position [Right Arm] 02 Sat by Pulse Oximetry 91 L 95 94 L Oxygen Delivery Method Room Air Room Air Room Air 12/18/23 09:31 12/18/23 10:35 Temperature Temperature Source Pulse Rate 52 L 51 L Pulse Rate [Left] Respiratory Rate Blood Pressure 162/57 H 183/77 H Blood Pressure [Right Arm] Blood Pressure Mean 92 103 Blood Pressure Mean [Right Arm] Blood Pressure Source [Right Arm] Blood Pressure Position [Right Arm] 02 Sat by Pulse Oximetry 94 L 97 Oxygen Delivery Method Room Air Room Air Lab Data Lab Results 12/18/23 07:39: WBC 8.4, RBC 4.99, Hgb 15.1, Hct 50.2 H, MCV 100.6 H, MCH 30.3, MCHC 30.1 L, RDW 14.3, Plt Count 276, MPV 9.5, Neut % (Auto) 57.4, Lymph % (Auto) 31.5, [place] % (Auto) 7.1, Eos % (Auto) 3.1, Baso % (Auto) 0.9, Neut # (Auto) 4.8, Lymph # (Auto) 2.7, [place] # (Auto) 0.6, Eos # (Auto) 0.3, Baso # (Auto) 0.1, Sodium 140, Potassium 4.7, Chloride 105, Carbon Dioxide 30, Anion Gap 9.7, BUN 18 H, Creatinine 1.30 H, Estimated Creat Clear 44, Estimated GFR 39 L, Est GFR ( Amer) 47 L, Glucose 132 H, Lactate 1.7, Calcium 8.6, Total Bilirubin 0.6, AST 49 H, ALT 42, Alkaline Phosphatase 55, Total Protein 7.4, Albumin 3.8, Globulin 3.6 H, Albumin/Globulin Ratio 1.1, Lipase 139 12/18/23 07:40: Urine Color Yellow, Urine Appearance Clear, Urine pH 5.5, Ur Specific [place] 1.010, Urine Protein Negative, Urine Glucose (UA) 3+, Urine Ketones Negative, Urine Blood Negative, Urine Nitrate Negative, Urine Bilirubin Negative, Urine Urobilinogen 0.2, Ur Leukocyte Esterase 1+ A, Urine RBC None, Urine WBC 10-20, Ur Squamous Epith Cells 10-20, Urine Bacteria Trace 12/18/23 07:39 12/18/23 07:39 Orders (Tests/Meds): ED MEDICATIONS Generic Name Dose Route Start Last Admin Trade Name Freq PRN Reason Stop Dose Admin Sodium Chloride 10 ml 12/18/23 08:13 12/18/23 08:14 Sodium Chloride 0.9% 10ml Syr (Rad Only) IV 01/17/24 08:12 10 ml NEEDED PRN Administration Maintain IV Site Discontinued Medications Generic Name Dose Route Start Last Admin Trade Name Freq PRN Reason Stop Dose Admin Lactated Ringer's 500 mls @ 250 mls/hr 12/18/23 07:33 12/18/23 07:43 Lactated Ringer's 500ml IV 12/18/23 09:32 250 mls/hr .Q2H ONE Administration Iopamidol 75 ml 12/18/23 08:13 12/18/23 08:14 Iopamidol-370 (76%);100ml Bottle IV 12/18/23 08:14 75 ml ONCE ONE Administration Morphine Sulfate 2 mg 12/18/23 07:32 12/18/23 07:43 Morphine 2mg/Ml Syringe IV 12/18/23 07:33 2 mg ONCE ONE Administration Ondansetron HCl 4 mg 12/18/23 07:32 12/18/23 07:42 Ondansetron 4mg/2ml Vial IV 12/18/23 07:33 4 mg ONCE ONE Administration ORDERS Category Date Time Status CT abdomen pelvis w con Stat Cat Scan 12/18/23 07:32 Completed CBC w/Auto Diff [Complete Blood Count Auto Diff] Stat Lab 12/18/23 07:39 Completed CMP [Comprehensive Metabolic Panel] Stat Lab 12/18/23 07:39 Completed Lactic Acid Stat Lab 12/18/23 07:39 Completed Lipase Stat Lab 12/18/23 07:39 Completed UA [Urinalysis and Microscopic] Stat Lab 12/18/23 07:40 Completed Urine Culture Stat Micro 12/18/23 07:40 Received Medical Decision Narrative: 83-year-old female with past medical history significant for CAD, NV, GERD, DM2, HLD, HTN, CHF, presents today for evaluation concerning generalized abdominal pain with associated nausea vomiting and diarrhea. Patient states that on Thursday she developed vomiting and nonbloody diarrhea. She states that she was seen by her PCP on yesterday who told her that she had a viral infection that likely caused her symptoms. Patient presents today complaining of 8 out of 10 abdominal cramping. States that she has not had a bowel movement since yesterday after taking Imodium. On assessment she was hemodynamically stable and in no acute distress. Afebrile. Her chest was clear to auscultation bilaterally. Abdomen was soft and nondistended however was generally tender to palpation. Other physical exam findings unremarkable. Differential diagnoses include not limited to gastritis, gastroenteritis, colitis, diverticulitis, pancreatitis, cholecystitis, appendicitis, UTI, other intra-abdominal pathology, among others. Labs today show no elevation in WBC at 8.4. Elevation in creatinine at 1.3. I have ordered for a 500 cc bolus of fluids. Urinalysis with 1+ leukocyte esterase, 10-20 WBCs, trace bacteria. CT scan does reveal a 12 mm left adrenal nodule which is nonspecific. No other acute findings Patient has been reassessed and remains hemodynamically stable and in no acute distress. Discussed with patient ED work-up and results and current plan to discharge. Provided with return to ED precautions and instructions concerning PCP follow-up. Will send her home with Levaquin to treat her UTI and Zofran for nausea. Also instructed patient to drink plenty of fluids in the setting of her creatinine elevation. Patient verbalized understanding and agreement with plan. Subsequently discharged hemodynamically stable and in no acute distress. Critical Care Critical Care Time Critical Care Time: No
--- NOTE | 2023-12-18 07:35 | PC.NURSE ---
dr gonzáles at bedside
[2023-12-18] MEDS: ONDANSETRON 4MG/2ML VIAL 4 MG IV (07:42)
[2023-12-18] MEDS: RINGERS SOLUTION,LACTATED 500 ML 250 ML IV (07:43)
[2023-12-18] MEDS: MORPHINE 2MG/ML SYRINGE 2 MG IV (07:43)
[2023-12-18 07:47] LABS: Microscopic, Urine URINE MICROSCOPIC (MICROSCOPIC)
[2023-12-18 07:48] LABS: Appearance,Urine CLEAR (Clear); Bilirubin,Urine Negative (Negative); Blood, Urine Negative (Negative); Color,Urine YELLOW (Yellow); Glucose,Urine (UA) 3+ (Negative); Ketones,Urine Negative (Negative); Leukocyte Esterase,Urine 1+ (Negative); Nitrate,Urine Negative (Negative); PH,Urine 5.5 (5.0-8.5); Protein,Urine Negative (Negative); Urobilinogen,Urine 0.2 EU/dl (0.2)
[2023-12-18 07:49] LABS: Basophils # 0.1 K/mm3 (0-0.2); Basophils % 0.9 % (0.1-2.0); Eosinophils # 0.3 K/mm3 (0.0-0.4); Eosinophils % 3.1 % (0.1-12.0); Hematocrit 50.2 % (37.0-47.0); Hemoglobin 15.1 g/dL (12.2-16.2); Lymphocytes # 2.7 K/mm3 (0.7-4.5); Lymphocytes % 31.5 % (10-50); Mean Corpuscular HGB Conc 30.1 g/dL (31.8-35.4); Mean Corpuscular Hemoglobin 30.3 pg (27.0-31.2); Mean Corpuscular Volume 100.6 fl (81-99); Mean Platelet Volume 9.5 fl (7.4-10.4); Monocytes # 0.6 K/mm3 (0.1-1.0); Monocytes % 7.1 % (1.7-9.3); Neutrophils # 4.8 K/mm3 (1.8-7.8); Neutrophils % 57.4 % (37.0-80.0); Platelet Count 276 K/mm3 (142-424); Red Blood Count 4.99 M/mm3 (4.20-5.40); Red Cell Distribution Width 14.3 % (11.5-17.5); White Blood Count 8.4 K/mm3 (4.8-10.8)
[2023-12-18 07:54] LABS: Bacteria,Urine Trace /lpf
[2023-12-18 07:54] LABS: Alanine Aminotransferase 42 U/L (12-78); Albumin Level 3.8 g/dl (3.5-5.0); Albumin/Globulin Ratio 1.1 (1.1-1.8); Alkaline Phosphatase 55 U/L (38-126); Anion Gap 9.7 mEq/L (5-15); Aspartate Amino Transferase 49 U/L (14-36); Bilirubin,Total 0.6 mg/dl (0.2-1.3); Blood Urea Nitrogen 18 mg/dl (7-17); Calcium 8.6 mg/dl (8.4-10.2); Carbon Dioxide 30 mmol/L (22.0-30.0); Chloride 105 mmol/L (98-107); Creatinine Clearance Estimated 44 mL/min (50-200); Estimated Glomerular Filt Rate 39 ml/min (>60); GFR (African American) 47 ML/MIN (>60); Globulin 3.6 g/dL (1.3-3.2); Glucose 132 mg/dl (74-100); Lipase 139 U/L (23-300); Potassium 4.7 mmoL/L (3.5-5.1); Sodium 140 mmol/L (136-145); Total Protein,Serum 7.4 g/dl (6.3-8.2)
[2023-12-18 07:55] LABS: Lactic Acid 1.7 mmol/L (0.7-2.1)
--- NOTE | 2023-12-18 08:12 | PC.NURSE ---
Pt to ct scan via wheelchair
[2023-12-18] MEDS: SODIUM CHLORIDE 0.9% 10ML SYR (RAD ONLY) 10 ML IV (08:14)
[2023-12-18] MEDS: IOPAMIDOL-370 (76%);100ML BOTTLE 75 ML IV (08:14)
--- NOTE | 2023-12-18 08:55 | PC.NURSE ---
called radiology to check on ct read. Ana states that it is locked and should be read soon
--- NOTE | 2023-12-18 10:06 | PC.NURSE ---
PT AND FAMILY UPDATED, DRINK PROVIDED. CALL LIGHT WITHIN REACH. NO FURTHER NEEDS AT THIS TIME
--- NOTE | 2023-12-18 10:39 | PC.NURSE ---
pt is concerned with her BP being high and not having any of her morning medications yet. Pt educated to take regularly scheduled medications when she gets home. Offered food or drink but pt declined.
== END 2023-12-18 11:06 | disposition home or self-care (01) ==
PROVIDERS: Emergency Provider Emergency Medicine; PCP Nurse Practitioner
DX: N39.0 Urinary tract infection, site not specified (principal); B96.89 Other specified bacterial agents as the cause of diseases classified elsewhere; R10.84 Generalized abdominal pain; K52.9 Noninfective gastroenteritis and colitis, unspecified; R11.2 Nausea with vomiting, unspecified; R79.89 Other specified abnormal findings of blood chemistry; E27.9 Disorder of adrenal gland, unspecified
CPT/HCPCS: 74177; 80053; 81001; 83605; 83690; 85025; 87086; 96361; 96374; 96375; 99285; J2270; J2405; J7120; Q9967

== ENCOUNTER 2024-03-22 12:55 | Outpatient (CLI) | payer MEDICARE, BC, SELFPAY ==
--- NOTE | 2024-03-22 12:59 | CT_ITS ---
FINAL REPORT TECHNIQUE: Noncontrast CT exam of the abdomen and pelvis. Sagittal and coronal reconstructions were obtained and reviewed. This study was performed with techniques to keep radiation doses as low as reasonably achievable (ALARA). Individualized dose reduction techniques using automated exposure control or adjustment of mA and/or kV according to the patient''s size were employed. CLINICAL HISTORY: NODULEOF ADRENAL CORTEX COMPARISON: 12/18/2023 FINDINGS: Abdomen: Lung bases are clear. There is mild enlargement of the left adrenal gland which is stable. Size limits characterization defect this is considered benign and likely an adenoma. There is poor characterization of the mass in the right kidney measuring up to 27 mm, stable in size and favored to represent a cyst. The kidneys show no stone disease or obstruction. No ureteral stones are present. Remaining solid organs are normal. Pneumobilia is noted. The patient is status post cholecystectomy. The bowel is negative. Pelvis: The appendix is normal. The patient is status post hysterectomy. 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 No pelvic mass is identified. No distal ureteral stones are seen. Bladder is unremarkable. No fluid collection or adenopathy is seen. IMPRESSION: Stable left adrenal lesion, most likely adenoma although size limits characterization. Reviewed, Interpreted and Dictated by Leti Lang MD Transcribed by Catie Martin Authenticated and [facility]
== END 2024-03-22 23:59 | disposition home or self-care (01) ==
LOC: RAD 12:56
PROVIDERS: PCP Nurse Practitioner; Visit Provider Nurse Practitioner
DX: E27.8 Other specified disorders of adrenal gland (principal)
CPT/HCPCS: 74176

== ENCOUNTER 2024-07-13 09:57 | Outpatient (CLI) | payer MEDICARE, BC, SELFPAY ==
[2024-07-13 10:31] LABS: Basophils % 0.4 % (0.1-2.0); Eosinophils # 0.3 K/mm3 (0.0-0.4); Eosinophils % 3.7 % (0.1-12.0); Hematocrit 43.9 % (37.0-47.0); Hemoglobin 14.1 g/dL (12.2-16.2); Lymphocytes # 2.3 K/mm3 (0.7-4.5); Lymphocytes % 29.8 % (10-50); Mean Corpuscular HGB Conc 32.1 g/dL (31.8-35.4); Mean Corpuscular Hemoglobin 30.1 pg (27.0-31.2); Mean Corpuscular Volume 93.6 fl (81-99); Mean Platelet Volume 11.3 fl (7.4-10.4); Monocytes # 0.7 K/mm3 (0.1-1.0); Monocytes % 8.9 % (1.7-9.3); Neutrophils # 4.5 K/mm3 (1.8-7.8); Neutrophils % 56.9 % (37.0-80.0); Platelet Count 224 K/mm3 (142-424); Red Blood Count 4.69 M/mm3 (4.20-5.40); Red Cell Distribution Width 14.2 % (11.5-17.5); White Blood Count 7.9 K/mm3 (4.8-10.8)
[2024-07-13 11:12] LABS: Alanine Aminotransferase 25 U/L (12-78); Albumin Level 3.6 g/dl (3.5-5.0); Alkaline Phosphatase 65 U/L (38-126); Aspartate Amino Transferase 33 U/L (14-36); Bilirubin,Direct 0.3 mg/dl (0.0-0.4); Bilirubin,Indirect 0.5 mg/dL (0.0-0.9); Bilirubin,Total 0.8 mg/dl (0.2-1.3); Bilirubin,Unconjugated 0.5 mg/dL (0.0-1.1); Blood Urea Nitrogen 26 mg/dl (7-17); Calcium 8.7 mg/dl (8.4-10.2); Carbon Dioxide 25 mmol/L (22.0-30.0); Chloride 104 mmol/L (98-107); Cholesterol 147 mg/dl (140-200); Estimated Glomerular Filt Rate 36 ml/min (>60); GFR (African American) 43 ML/MIN (>60); Glucose 150 mg/dl (74-100); HDL Cholesterol 72 mg/dl (40-60); Sodium 140 mmol/L (136-145); Total Protein,Serum 6.9 g/dl (6.3-8.2); Triglycerides 155 mg/dl (30-150); VLDL Cholesterol 31 mg/dL (0-40)
[2024-07-13 11:23] LABS: Direct LDL Cholesterol 45.49 mg/dL (100-129)
[2024-07-13 11:27] LABS: Free T4 (Free Thyroxine) 1.05 ng/dl (0.78-2.19)
[2024-07-13 11:42] LABS: Thyroid Stimulating Hormone 5.99 uIU/mL (0.465-4.68)
[2024-07-13 11:49] LABS: Anion Gap 15.4 mEq/L (5-15); Potassium 4.4 mmoL/L (3.5-5.1)
== END 2024-07-13 23:59 | disposition home or self-care (01) ==
LOC: LAB 09:58
PROVIDERS: PCP Nurse Practitioner; Visit Provider Nurse Practitioner Family
DX: I25.10 Atherosclerotic heart disease of native coronary artery without angina pectoris (principal); E03.9 Hypothyroidism, unspecified; E78.5 Hyperlipidemia, unspecified; I50.23 Acute on chronic systolic (congestive) heart failure; E11.69 Type 2 diabetes mellitus with other specified complication; E66.9 Obesity, unspecified; I11.0 Hypertensive heart disease with heart failure
CPT/HCPCS: 36415; 80048; 80061; 80076; 84439; 84443; 85025

== ENCOUNTER 2025-01-23 13:43 | Outpatient (CLI) | payer MEDICARE, BC, SELFPAY ==
--- NOTE | 2025-01-23 14:30 | CA_ITS ---
APPROVED REPORT EXAM: Comprehensive 2D, Doppler, and color-flow Echocardiogram Machine Crater: Ana Payan RVT Ht: 5 ft 0 in Wt: 199lbs BSA: 1.86 BP: 138/70 mmHg Indications: LV FUNCTION,CORONARY ARTERY DISEASE 2D Dimensions IVSd 1.39 cm F: 0.6-1.0 LVEF (Visual) 55.70 % PWd 0.75 cm F: 0.6 - 1.0 LA Volume 53.20 mL LVDd 4.84 cm F: 3.9 - 5.3 LA Volume Index 28.60 mL/m2 (M/F) 16-34 LVDs 3.43 cm F: 2.2 - 3.5 M-Mode Dimensions RVDd 2.85 cm (0.9-2.6) LA Diam 4.11 cm (1.9-4.0) LVDd 5.18 cm (3.5-5.7) LVDs 3.44 cm (3.5-5.7) IVSd 1.23 cm (0.6-1.1) PWd 0.72 cm (0.6-1.1) EF (Teich) 55.00% FS 33.60% EDV (Teich) 128.40 mL TAPSE 1.78 (<1.7) ESV (Teich) 48.80 mL LV Diastology E Decel Time 217 (160-240 msec) E/A Ratio 0.8 Aortic Valve AI PHT 694.00 ms AO Peak GR. 4.70 mmHg Mitral Valve MV E Max Nino. 79.0 (40-130 cm/s) MV A Velocity 101.0 (40-130 cm/s) E/A Ratio 0.78 MV PHT 63.0 ms Pulmonary Valve PV Peak Velocity 69.0 (50-150 cm/s) Left Ventricle The left ventricle is normal size. Left ventricular systolic function is low-normal. There is increased left ventricular wall thickness. There is normal LV segmental wall motion. Transmitral Doppler flow pattern suggests impaired LV relaxation. LVEF is 50%. Right Ventricle The right ventricle is normal size. The right ventricular systolic function is normal. Atria Left atrium is mildly dilated. The right atrium size is normal. There is no color Doppler evidence of interatrial shunt. Aortic Valve The aortic valve is mildly thickened. There is no hemodynamically significant aortic valvular stenosis. Mild aortic regurgitation is present. Mitral Valve The mitral valve is normal in structure. No evidence of mitral valve stenosis. Mild mitral regurgitation is present. Tricuspid Valve The tricuspid valve leaflets are thin and pliable. Mild tricuspid regurgitation. RVSP is 20-25 mmHg. Pulmonic Valve The pulmonary valve is grossly normal in structure. Trace pulmonic valve regurgitation is present. Great Vessels The aortic root is normal in size. IVC is normal in size and collapses >50% with inspiration. Pericardium There is no pericardial effusion. Other Information Study Quality: Fair Conclusion Low-normal LV systolic function (LVEF 50%). Mild LA dilation. Mild AI, mild MR, mild TR. Electronically signed by : Larisa Vinson MD 01/27/2025 18:56:56
== END 2025-01-23 23:59 | disposition home or self-care (01) ==
LOC: RT 13:44
PROVIDERS: PCP Nurse Practitioner; Visit Provider Nurse Practitioner Family
DX: I08.3 Combined rheumatic disorders of mitral, aortic and tricuspid valves (principal); I50.32 Chronic diastolic (congestive) heart failure; I25.10 Atherosclerotic heart disease of native coronary artery without angina pectoris; R94.30 Abnormal result of cardiovascular function study, unspecified
CPT/HCPCS: 93306